=== PATIENT | male | born 1940 | race Caucasian/White ===

== ENCOUNTER → 2024-11-12 | Outpatient (CLI) | payer MEDICARE, BC, SELFPAY ==
[2024-11-12 09:22] LABS: Basophils # (Auto) 0.1 Thou/mm3 (0.0-0.2); Basophils % (Auto) 1 % (0-2.5); Eosinophils # (Auto) 0.2 Thou/mm3 (0.0-0.5); Eosinophils % (Auto) 3 % (0-10); Hematocrit 39.7 % (41.0-53.0); Hemoglobin 13.6 g/dL (13.5-16.0); Immature Granulocytes % (Auto) 1 % (0-0); Immature Granulocytes Auto 0.04 Thou/mm3 (0.00-0.00); Lymphocytes % (Auto) 14 % (10-50); Mean Corpuscular HGB Conc 34.3 g/dl (31.0-37.0); Mean Corpuscular Hemoglobin 33.9 pg (25.0-35.0); Mean Corpuscular Volume 99 fL (80-100); Monocytes # (Auto) 0.7 Thou/mm3 (0.0-0.8); Monocytes % (Auto) 10 % (0-12); Neutrophils # (Auto) 5.2 Thou/mm3 (1.8-7.7); Neutrophils % (Auto) 72 % (37-80); Nucleated Red Blood Cell % 0 /100 WBC (0); Platelet Count 211 Thou/mm3 (140-440); RDW Standard Deviation 48.1 fL (35.1-43.9); Red Blood Count 4.01 Miln/mm3 (4.50-5.90); White Blood Count 7.2 Thou/mm3 (3.8-10.6)
[2024-11-12 09:45] LABS: Alanine Aminotransferase 22 U/L (10-49); Albumin, Serum 4.2 gm/dL (3.4-4.8); Albumin/Globulin Ratio 1.8 (1.2-2.2); Alkaline Phosphatase 112 U/L (46-116); Anion Gap 8 (7-16); Aspartate Amino Transferase 18 U/L (0-34); BUN/Creatinine Ratio 18 Ratio (12-20); Bilirubin,Total 0.6 mg/dL (0.3-1.2); Blood Urea Nitrogen 42 mg/dL (9-23); Calcium 9.6 mg/dL (8.3-10.6); Calcium (Corrected) 9.6 mg/dL (8.5-10.1); Carbon Dioxide 26.7 mMol/L (20.0-31.0); Chloride 106 mMol/L (98-107); Cholesterol 137 mg/dL (132-200); Creatinine (Component) 2.3 mg/dL (0.6-1.3); Globulin 2.3 gm/dL (2.3-3.5); Glucose 111 mg/dL (74-106); HDL Cholesterol 67 mg/dL (40-60); LDL Cholesterol,Calculated 54 mg/dL (0-130); Osmolality,Calculated 292 (275-295); Sodium 141 mMol/L (136-145); Total Protein 6.5 gm/dL (5.7-8.2); Triglycerides 80 mg/dL (30-150); eGFR 27 See Note
== END | disposition home or self-care (01) ==
LOC: COPL 08:37
PROVIDERS: Referring Provider Internal Medicine Cardiovascular Disease; Visit Provider Internal Medicine Cardiovascular Disease
DX: E78.00 Pure hypercholesterolemia, unspecified (principal); N18.32 Chronic kidney disease, stage 3b; Z95.5 Presence of coronary angioplasty implant and graft
CPT/HCPCS: 36415; 80053; 80061; 85025

== ENCOUNTER → 2025-01-21 | Outpatient (CLI) | payer MEDICARE, BC, SELFPAY ==
[2025-01-21 16:39] LABS: Alanine Aminotransferase 16 U/L (10-49); Albumin, Serum 4.1 gm/dL (3.4-4.8); Albumin/Globulin Ratio 1.6 (1.2-2.2); Alkaline Phosphatase 113 U/L (46-116); Anion Gap 9 (7-16); Aspartate Amino Transferase 14 U/L (0-34); BUN/Creatinine Ratio 18 Ratio (12-20); Bilirubin,Total 0.5 mg/dL (0.3-1.2); Blood Urea Nitrogen 46 mg/dL (9-23); Calcium 9.2 mg/dL (8.3-10.6); Calcium (Corrected) 9.2 mg/dL (8.5-10.1); Carbon Dioxide 26.7 mMol/L (20.0-31.0); Chloride 103 mMol/L (98-107); Creatinine (Component) 2.5 mg/dL (0.6-1.3); Globulin 2.6 gm/dL (2.3-3.5); Glucose 89 mg/dL (74-106); Osmolality,Calculated 288 (275-295); Potassium 4.6 mMol/L (3.4-5.1); Sodium 139 mMol/L (136-145); Total Protein 6.7 gm/dL (5.7-8.2); eGFR 24 See Note
[2025-01-21 17:06] LABS: Collection Type, Urine Clean Catch
[2025-01-21 17:41] LABS: Bilirubin,Urine Negative (Negative); Blood,Urine 2+ (Negative); Clarity,Urine Clear (Clear/Hazy); Color,Urine Lt-Yellow (Lt Yel-Yel); Glucose, Urine Negative (Negative); Hyaline Casts,Urine < 1 /hpf (0-1); Ketones,Urine Negative (Negative); Leukocyte Esterase,Urine Negative (Negative); Nitrite,Urine Negative (Negative); Protein,Urine 2+ (Neg - Trace); RBC,Urine 34 /hpf (0-3); Specific Gravity,Urine 1.012 (1.001-1.035); Squamous Epithelial Cell,Urine < 1 /hpf (0-5); Urobilinogen,Urine Negative mg/dL (0.0-1.0); WBC,Urine 1 /hpf (0-5)
[2025-01-21 18:10] LABS: Basophils # (Auto) 0.1 Thou/mm3 (0.0-0.2); Basophils % (Auto) 1 % (0-2.5); Eosinophils # (Auto) 0.3 Thou/mm3 (0.0-0.5); Eosinophils % (Auto) 4 % (0-10); Hemoglobin 13.3 g/dL (13.5-16.0); Immature Granulocytes % (Auto) 0 % (0-0); Immature Granulocytes Auto 0.03 Thou/mm3 (0.00-0.00); Lymphocytes # (Auto) 1.4 Thou/mm3 (1.0-4.8); Lymphocytes % (Auto) 19 % (10-50); Mean Corpuscular HGB Conc 33.3 g/dl (31.0-37.0); Mean Corpuscular Hemoglobin 33.6 pg (25.0-35.0); Mean Corpuscular Volume 101 fL (80-100); Monocytes # (Auto) 0.8 Thou/mm3 (0.0-0.8); Monocytes % (Auto) 11 % (0-12); Neutrophils # (Auto) 4.8 Thou/mm3 (1.8-7.7); Neutrophils % (Auto) 66 % (37-80); Nucleated Red Blood Cell % 0 /100 WBC (0); Platelet Count 179 Thou/mm3 (140-440); RDW Standard Deviation 49.4 fL (35.1-43.9); Red Blood Count 3.96 Miln/mm3 (4.50-5.90); White Blood Count 7.3 Thou/mm3 (3.8-10.6)
== END | disposition home or self-care (01) ==
LOC: COPL 15:28
PROVIDERS: PCP Nurse Practitioner; Referring Provider Nurse Practitioner; Visit Provider Nurse Practitioner
DX: R31.9 Hematuria, unspecified (principal)
CPT/HCPCS: 36415; 80053; 81001; 85025; 87086

== ENCOUNTER → 2025-02-18 | Outpatient (CLI) | payer MEDICARE, BC, SELFPAY ==
--- NOTE | 2025-02-18 16:00 | XR_ITS ---
Examination: Retroperitoneal ultrasound, complete Technique: Multiple high resolution grayscale images of the retroperitoneum obtained, including kidneys and bladder. Exam date and time:February 18, 2025 1607 hrs. Indications: Abdominal distention beginning 5 years ago, flank pain Findings: Right kidney 11.4 cm cortex 1.5 cm 19 mm lower pole cyst Left kidney 10.9 cm cortex 1.0 cm 2 small lower pole cyst 22 mm, 15 mm Moderate renal parenchymal scar formation No hydronephrosis No bladder mass Bladder prevoid volume 150 cc Prostate is not enlarged and no prostate nodules Impression: Bilateral renal cortical thinning Moderate bilateral renal parenchymal scar formation No hydronephrosis
--- NOTE | 2025-02-18 16:30 | XR_ITS ---
Examination: Abdomen sonogram, complete Date and time of exam: February 18, 2025 1620 hrs. Indications: Abdominal distention beginning 2 years ago Technique: Grayscale transabdominal sonographic images of abdomen Findings: Negative for gallstones Gallbladder wall is thickened 0.5 cm Common bile duct 0.4 cm Pancreatic head 3.4 cm Aorta not enlarged Liver 15 cm no focal liver lesions Normal hepatopedal portal venous flow Patent IVC Right kidney 4.0 cm renal cortex 1.1 cm Left kidney 11.0 cm cortex 1.1 cm Small bilateral benign renal cyst Moderate renal parenchymal scar formation Spleen 9.5 cm . Impression: Gallbladder wall is thickened, clinical correlation advised, consider HIDA scan follow-up Bilateral renal cortical thinning Moderate bilateral renal parenchymal scar formation
== END | disposition home or self-care (01) ==
PROVIDERS: PCP Nurse Practitioner; Referring Provider Nurse Practitioner; Visit Provider Internal Medicine
DX: N28.89 Other specified disorders of kidney and ureter (principal)
CPT/HCPCS: 76700; 76770

== ENCOUNTER 2025-09-15 14:51 | Inpatient (IN) | payer MEDICARE, BC, SELFPAY ==
[2025-09-15] VITALS (7 sets, daily range): BP systolic 93–126; BP diastolic 63–68; PULSE 72–83; RESP 14–98; TEMP 36.4; O2SAT 96–100; BMI 26.6
--- NOTE | 2025-09-15 15:37 | XR_ITS ---
Examination: Retroperitoneal ultrasound, complete Technique: Multiple high resolution grayscale images of the retroperitoneum obtained, including kidneys and bladder. Exam date and time: September 15, 2025, 1653 hours INDICATIONS: Acute renal insufficiency on laboratory examination today. FINDINGS: Right kidney 10.2 cm renal cortex 1.4 cm Lower pole 19 mm cyst Left kidney 11.8 cm renal cortex 1.1 cm Mid kidney 26 mm cyst Moderate renal parenchymal scar formation No hydronephrosis Contracted urinary bladder Prostatomegaly volume 65.1 cc no prostate nodules IMPRESSION: Bilateral renal cortical thinning Moderate bilateral renal parenchymal scar formation No hydronephrosis
--- NOTE | 2025-09-15 15:37 | PD.EDADULT ---
ED General RME/HPI General Chief complaint: Abdominal Pain Stated complaint: REFERRED BY DR. GONZALES FOR KIDNEY INJURY Time Seen by Provider: 09/15/25 15:28 Arrival date/time: 09/15/25 14:51 85-year-old male patient was sent to us by Dr. Gonzales, administrative assistant office manager, for TARIQ. Apparently patient was brought in by family from [facility], due to not feeling well. Been having nausea, vomiting, for more than 3 weeks, was admitted in one of the hospital in [facility], stayed there overnight, 10 days ago for TARIQ. Kidney function improved according to the family. Since then the patient continues to have nausea, vomiting, not drinking and not eating. Patient has significant history of dementia. He had a history of prostate cancer but was released by urologist more than 3 years ago. Went to PCP today and was noted to have worsening kidney function. Currently patient is not having any symptoms. Patient is very diaphoretic. Patient told me that he is still making urine. Related Data Home Medications ?Medication ?Instructions ?Recorded ?Confirmed celecoxib 200 mg capsule (Celebrex) 200 mg PO QDAY 10/30/23 10/30/23 clopidogrel 75 mg tablet 75 mg PO QDAY 10/30/23 10/30/23 finasteride 5 mg tablet 5 mg PO QDAY 10/30/23 10/30/23 nifedipine 30 mg tablet,extended 30 mg PO QDAY 10/30/23 10/30/23 release 24 hr (Procardia XL) olmesartan 40 1 tab PO QDAY 10/30/23 10/30/23 mg-hydrochlorothiazide 25 mg tablet (Benicar HCT) rosuvastatin 10 mg tablet (Crestor) 10 mg PO QDAY 10/30/23 10/30/23 vitamin B complex (B 1 tab PO QDAY 10/30/23 10/30/23 Complex-Vitamin B12 tablet) Allergies Allergy/AdvReac Type Severity Reaction Status Date / Time No Known Allergies Allergy Verified 09/15/25 14:55 Review of Systems Review of Systems Narrative Review of Systems: Review of system reviewed and within normal limits except mentioned in HPI ED Exam Narrative Physical exam: VITAL SIGNS: Reviewed. GENERAL APPEARANCE: Alert and interactive, follows commands, no acute distress, HEAD AND FACE: Non-traumatic. ENT: PERRL, pink conjunctivitis, eyelid no trauma, Mucous membrane dry NECK: Supple, nontender, no nuchal rigidity. CHEST: No tenderness, no crepitus, no paradoxical movement, no retractions. LUNGS: Clear, well ventilated, symmetric, no rales, no wheezing, no ronchi, no stridor, good breath sounds bilaterally. HEART: Regular rate, regular rhythm, no murmur, no gallops. ABDOMEN: Soft, positive bowel sounds, nondistended, no guarding, nontender, no rebound, no masses, RECTAL: Deferred. GENITAL: Deferred. NEUROLOGICAL: Gross motor function intact sensory function intact, Appropriate for age. MUSCULOSKELETAL: low back nontender, full range of motion. EXTREMITIES: Nontender, full range of motion. SKIN: Color pink, dry, no rash, no lacerations, no abrasions, no contusions. LYMPHATICS: Deferred. Course Quality Measures none Orders Category Date Time Status COVID-19 Screening Questionnaire NOW Care 09/15/25 15:37 Active Decision to Admit X1 Care 09/15/25 15:37 Completed NPO after Midnight ONCE Care 09/15/25 17:28 Active Consult to Nephrology Stat Cons 09/15/25 16:03 Ordered Diet NPO after Midnight Diet 09/16/25 00:01 Active US renal BI Stat Exams 09/15/25 15:37 Completed ABG [Arterial Blood Gas] Stat Lab 09/15/25 17:26 Completed Citric Acid/Sodium Citr [Bicitra Soln] Med 09/15/25 21:00 Active 30 ml PO BID Ringers Lactated 1000 ml [Lactated Ringers] 1,000 ml Med 09/15/25 17:28 Active IV 100 mls/hr Ringers Lactated 1000 ml [Lactated Ringers] 1,000 ml Med 09/15/25 15:37 Discontinued IV 999 mls/hr Sodium Bicarb 8.4% 50ml Vial* Med 09/15/25 16:50 Discontinued 50 meq IV X1 ONE Sodium Bicarb 8.4% SYR Med 09/15/25 16:59 Discontinued 50 ml IV X1 ONE Vital Signs Vital signs: Vital Signs Temperature 97.5 F 09/15/25 15:14 Pulse Rate 83 09/15/25 15:14 Respiratory Rate 18 09/15/25 15:14 Blood Pressure 93/63 09/15/25 15:14 Pulse Oximetry (%) 99 09/15/25 15:14 Oxygen Delivery Method Room Air 09/15/25 15:14 Discharge Plan Plan Patient Disposition: Admit Acute Care w/in Hospital Problem List Clinical Impression: TARIQ (acute kidney injury), Acute dehydration, Chronic diarrhea MDM Narrative MDM hospital course (for use when minimal MDM required): 09/15/25 14:51 85-year-old male patient was sent to us by Dr. Gonzales, administrative assistant office manager, for TARIQ. Apparently patient was brought in by family from [facility], due to not feeling well. Been having nausea, vomiting, for more than 3 weeks, was admitted in one of the hospital in [facility], stayed there overnight, 10 days ago for TARIQ. Kidney function improved according to the family. Since then the patient continues to have nausea, vomiting, not drinking and not eating. Patient has significant history of dementia. He had a history of prostate cancer but was released by urologist more than 3 years ago. Went to PCP today and was noted to have worsening kidney function. Currently patient is not having any symptoms. Patient is very diaphoretic. Patient told me that he is still making urine. I reviewed the patient's laboratory workup was done outpatient today and showed creatinine of 9.4, BUN of 98, carbon dioxide less than 10, anion gap of 16, potassium 3.2 patient received IV fluids. Renal ultrasound done. And showedand Showed Bilateral renal cortical thinning Moderate bilateral renal parenchymal scar formation No hydronephrosis Patient was started on sodium bicarbonate IV also. Case discussed with administrative assistant office manager, who advised me to asked the hospitalist to admit Patient was admitted by hospitalist, Medication Administration(s) Medication Administration History Acetaminophen (Acetaminophen 325 Mg Tablet) 650 mg PO Q6H PRN PRN Reason: Fever >100.3 Stop: 10/15/25 17:52 Acetaminophen (Acetaminophen 325 Mg Tablet) 650 mg PO Q6H PRN PRN Reason: PAIN SCALE 1-3 (mild Stop: 10/15/25 17:52 Allopurinol (Allopurinol 100 Mg Tablet) 100 mg PO QDAY CASEY Stop: 10/16/25 08:59 Atorvastatin Calcium (Atorvastatin Calcium 10 Mg Tablet) 10 mg PO HS CASEY Stop: 10/15/25 20:59 Last Admin: 09/15/25 20:33 Dose: 10 mg Documented By: MLConcepción Calcitriol (Calcitriol 0.25 Mcg Capsule) 0.25 mcg PO QDAY CASEY Stop: 10/16/25 08:59 Citric Acid/Sodium Citrate (Citric Acid/Sodium Citr 15 Ml Udc (Bicitra)) 30 ml PO BID CASEY Stop: 10/15/25 20:59 Last Admin: 09/15/25 20:33 Dose: 30 ml Documented By: MLD Finasteride (Finasteride 5 Mg Tablet) 5 mg PO QDAY CASEY Stop: 10/16/25 08:59 Lactated Ringer's (Lactated Ringers) 1,000 mls @ 100 mls/hr IV .Q10H CASEY Stop: 10/15/25 17:27 Last Admin: 09/15/25 17:55 Dose: 100 mls/hr Documented By: BY Ceftriaxone Sodium/Dextrose (Rocephin/D5w 1gm Iv Premix) 1 gm in 50 mls @ 100 mls/hr IV QDAY CASEY Stop: 09/22/25 18:02 Last Admin: 09/15/25 20:33 Dose: 100 mls/hr Documented By: MLD Magnesium Sulfate (Magnesium Sulfate Ivpb) 4 gm in 50 mls @ 12.5 mls/hr IV X1 ONE Stop: 09/16/25 01:38 Nifedipine (Nifedipine Xl 30 Mg Tabcr) 30 mg PO QDAY [facility] Stop: 10/16/25 08:59 Ondansetron HCl (Ondansetron Inj 2 Mg/Ml Inj 2 Ml) 4 mg IVP Q6H PRN; Protocol PRN Reason: NAUSEA OR VOMITING Stop: 10/15/25 17:52 Pantoprazole Sodium (Pantoprazole Inj 40 Mg Vial) 40 mg IVP Q12HR CASEY Stop: 10/15/25 20:59 Last Admin: 09/15/25 20:33 Dose: 40 mg Documented By: MLD Sevelamer Carbonate (Sevelamer Carbonate 800 Mg Tablet) 800 mg PO TIDWM CASEY Stop: 10/16/25 07:59 Discontinued Medications Calcium Carbonate (Calcium Carbonate 600 Mg Tablet) 600 mg PO X1 ONE Stop: 09/15/25 20:52 Calcium Carbonate (Calcium Carbonate 600 Mg Tablet) 600 mg PO QDAY CASEY Stop: 10/16/25 08:59 Calcium Carbonate (Calcium Carbonate 600 Mg Tablet) 600 mg PO QDAY [facility] Stop: 10/16/25 08:59 Calcium Gluconate (Calcium Gluconate 10% Inj 1 Gm/10 Ml Vial) 1 gm IV X1 ONE Stop: 09/15/25 20:58 Last Admin: 09/15/25 21:42 Dose: 1 gm Documented By: MLD Calcium Gluconate (Calcium Gluconate 10% Inj 1 Gm/10 Ml Vial) 1 gm IV X1 ONE Stop: 09/15/25 20:58 Lactated Ringer's (Lactated Ringers) 1,000 mls @ 999 mls/hr IV .Q1H1M ONE Stop: 09/15/25 16:37 Last Infusion: 09/15/25 17:15 Dose: 0 mls/hr Documented By: Admin: 09/15/25 16:15 Dose: 999 mls/hr Documented By: BY Potassium Chloride (Potassium Chloride 10% 20 Meq/15 Ml Udc) 40 meq PO X1 ONE Stop: 09/15/25 20:52 Last Admin: 09/15/25 21:41 Dose: 40 meq Documented By: MLD Sevelamer Carbonate (Sevelamer Carbonate 800 Mg Tablet) 800 mg PO X1 ONE Stop: 09/15/25 20:56 Last Admin: 09/15/25 21:41 Dose: 800 mg Documented By: MLConcepción Sodium Bicarbonate (Sodium Bicarb Inj 8.4% 1 Meq/Ml 50 Ml Vial) 50 meq IV X1 ONE Stop: 09/15/25 16:51 Last Admin: 09/15/25 17:00 Dose: Not Given Documented By: SIENNA Non-Admin Reason: Cancelled by Provider Sodium Bicarbonate (Sodium Bicarb Inj 8.4% Syr 50 Ml Syringe) 50 ml IV X1 ONE Stop: 09/15/25 17:00 Last Admin: 09/15/25 17:27 Dose: 50 ml Documented By: BY Sodium Bicarbonate (Sodium Bicarb Inj 8.4% 1 Meq/Ml 50 Ml Vial) 50 meq IV X1 ONE Stop: 09/15/25 19:29 Sodium Bicarbonate (Sodium Bicarb Inj 8.4% 1 Meq/Ml 50 Ml Vial) 50 meq IV X1 ONE Stop: 09/15/25 20:49 Sodium Bicarbonate (Sodium Bicarb Inj 8.4% 1 Meq/Ml 50 Ml Vial) 50 meq IV X1 ONE Stop: 09/15/25 20:52 Sodium Bicarbonate (Sodium Bicarb Inj 8.4% Syr 50 Ml Syringe) 50 ml IV X1 ONE Stop: 09/15/25 21:31 Last Admin: 09/15/25 21:31 Dose: 50 ml Documented By: MLD Sodium Bicarbonate (Sodium Bicarb Inj 8.4% Syr 50 Ml Syringe) 50 ml IV X1 ONE Stop: 09/15/25 21:33 Sodium Bicarbonate (Sodium Bicarb Inj 8.4% Syr 50 Ml Syringe) 50 ml IV X1 ONE Stop: 09/15/25 21:33 Diagnosis Differential Diagnosis ED Complaint MDM: Dehydration, chronic nausea vomiting diarrhea, TARIQ on CKD Diagnoses ruled out and/or further discussions: Dehydration, TARIQ
[2025-09-15] MEDS: RINGERS LACTATED 1000 ML 1,000 ML 999 ML IV (16:15)
--- NOTE | 2025-09-15 17:19 | PD.ADDHP ---
Addendum History & Physical Addendum Date of report being addended: 09/15/25 Narrative: Attending attestation: I reviewed labs, imaging, EKG, home medications and prior available records. Face to face evaluation was performed by me. I have personally examined the patient and discussed assessment and plan with the IM team. I reviewed the resident note and agree with the plan with exceptions as below. Nausea and vomiting Diarrhea TARIQ on CKD Hypokalemia Hyponatremia TARIQ is likely prerenal in setting of poor oral intake and vomiting/diarrhea Start IV fluids Monitor kidney function. Avoid nephrotoxins. Renally dosed medications Consulted nephrology Hold HCTZ and Bumex Ordered stool studies
[2025-09-15] MEDS: Sodium Bicarb Inj 8.4% SYR 50 ML SYRINGE IV ×4 (17:27→21:50)
[2025-09-15 17:30] LABS: Base Excess -17 (-3-3); HCO3 8 mEq/L (20-26); Inspired Oxygen, FIO2 21 %; O2 Saturation 98 % (91-98); PCO2 20 mmHg (32.0-48.0); PO2 108 mmHg (83-108); pH, Arterial 7.23 (7.35-7.45)
[2025-09-15 17:31] LABS: Allen Test Performed/OK; Puncture Site Right Radial
--- NOTE | 2025-09-15 17:41 | PD.RESCONSUL ---
HPI Data of Consult Consult date: 09/15/25 Consult Narrative Reason for consult: TARIQ on CKDIV History of present illness: Jair Elizabeth 85M pmhx significant for dementia, CAD, HTN, HLD and hx of prostate adenocarcinoma presents to [facility] ED on 09/15 sent from ceramics instructor Dr. Gonzales's office for TARIQ on CKDIV. Son at bedside reports that patient was admitted to hospital in [facility] 10 days ago for similar presentation with TARIQ and was aggressively hydrated with IVF, discharged next day with improvement in renal function. For the past few days patient has significantly decreased p.o. intake drinking minimal water and minimal urine output. Son states that patient does forget to drink water due to dementia and has been having nausea and vomiting with diarrhea. Patient denies any flank pain, hematuria or suprapubic pain. Denies recent illness, recent travel or fever/chills. On admission, sodium 134, potassium 3.2, bicarb less than 10, anion gap 18, BUN 98, creatinine 9.4, GFR 5 osmolarity 298. Nephrology consulted for TARIQ on CKD stage IV. cc:: cc: Review of Systems Review of Systems Systems Reviewed: All systems reviewed, normal except as documented Exam Vital Signs Temp Pulse Resp BP Pulse Ox O2 Del Method 97.6 F 72 18 118/68 99 Room Air 09/15/25 16:15 09/15/25 16:15 09/15/25 16:15 09/15/25 16:15 09/15/25 16:15 09/15/25 15:14 Narrative Exam GENERAL: Alert, no acute distress, dementia HEENT: mucous membranes dry, bilateral sclera anicteric CARDIOVASCULAR: regular rate and rhythm, S1/S2 present, no murmurs appreciated PULMONARY: clear to auscultation bilaterally, no rales/rhonchi/wheezes ABDOMINAL: soft, non-distended, no rebound/guarding, bowel sounds present, mild epigastric tenderness EXTREMITIES: no peripheral edema SKIN: warm and dry, intact, no rashes NEURO: CN II-XII grossly intact, no focal deficits, alert, following commands Results Labs 09/16/25 05:20 09/16/25 05:20 ABG Interpretation ABG results: 09/15/25 17:26 ABG pH 7.23 L ABG pCO2 20 L ABG pO2 108 ABG HCO3 8 L* ABG O2 Saturation 98 ABG Base Excess -17 L Quality Measures Quality Measures VTE prophylaxis Advance care planning discussed with:: patient and child Medications Home Medications and Allergies Home Medications ?Medication ?Instructions ?Recorded ?Confirmed ?Type celecoxib 200 mg capsule (Celebrex) 200 mg PO QDAY 10/30/23 09/16/25 History finasteride 5 mg tablet 5 mg PO QDAY 10/30/23 09/16/25 History nifedipine 30 mg tablet,extended 30 mg PO QDAY 10/30/23 09/16/25 History release 24 hr (Procardia XL) olmesartan 40 1 tab PO QDAY 10/30/23 09/16/25 History mg-hydrochlorothiazide 25 mg tablet (Benicar HCT) rosuvastatin 10 mg tablet (Crestor) 10 mg PO QDAY 10/30/23 09/16/25 History vitamin B complex (B 1 tab PO QDAY 10/30/23 09/16/25 History Complex-Vitamin B12 tablet) allopurinol 100 mg tablet 100 mg PO .Q PM 09/16/25 09/16/25 History bumetanide 1 mg tablet 1 mg PO .QOTHERDAY 09/16/25 09/16/25 History ergocalciferol (vitamin D2) 1,250 1,250 mcg PO QWEEK 09/16/25 09/16/25 History mcg (50,000 unit) capsule potassium chloride 20 mEq 20 meq PO .QOTHER DAY 09/16/25 09/16/25 History tablet,extended release sertraline 50 mg tablet 50 mg PO QDAY 09/16/25 09/16/25 History sevelamer carbonate 800 mg tablet 800 mg PO BID 09/16/25 09/16/25 History vitamin B complex-vitamin C-folic 1 tab PO QDAY 09/16/25 09/16/25 History acid 0.8 mg tablet Allergies Allergy/AdvReac Type Severity Reaction Status Date / Time No Known Allergies Allergy Verified 09/15/25 14:55 Visit Medications Citric Acid/Sodium Citrate (Citric Acid/Sodium Citr 15 Ml Udc (Bicitra)) 30 ml PO BID CASEY Stop: 10/15/25 20:59 Lactated Ringer's (Lactated Ringers) 1,000 mls @ 100 mls/hr IV .Q10H CASEY Stop: 10/15/25 17:27 Discontinued Medications Lactated Ringer's (Lactated Ringers) 1,000 mls @ 999 mls/hr IV .Q1H1M ONE Stop: 09/15/25 16:37 Last Admin: 09/15/25 16:15 Dose: 999 mls/hr Sodium Bicarbonate (Sodium Bicarb Inj 8.4% 1 Meq/Ml 50 Ml Vial) 50 meq IV X1 ONE Stop: 09/15/25 16:51 Last Admin: 09/15/25 17:00 Dose: Not Given Sodium Bicarbonate (Sodium Bicarb Inj 8.4% Syr 50 Ml Syringe) 50 ml IV X1 ONE Stop: 09/15/25 17:00 Last Admin: 09/15/25 17:27 Dose: 50 ml Assessment & Plan Plan Jair Elizabeth 85M pmhx significant for dementia, CAD, HTN, HLD and hx of prostate adenocarcinoma presents to [facility] ED on 09/15 sent from ceramics instructor Dr. Gonzales's office for TARIQ on CKDIV likely 2/2 dehydration #TARIQ on CKDIV likely prerenal #Metabolic acidosis 2/2 TARIQ #Hypokalemia #Hyponatremia Patient sent from ceramics instructor Dr. Gonzales's office. Endorses N/V with diarrhea and poor PO intake for the past few days. Recently admitted 10 days ago for similar presentation, and was treated with IVF with improvement. On admission, sodium 134, potassium 3.2, bicarb less than 10, anion gap 18, BUN 98, creatinine 9.4, GFR 5 osmolarity 298. ABG 7.23/20/108/8. UA cloudy, 2+ protein, 3+ blood, 1+ bilirubin, +LE, 45 RBC 207 WBC rare bacteria. s/p 1 amp bicarb in ED Renal US: Bilateral renal cortical thinning, moderate bilateral renal parenchymal scar formation, no hydronephrosis, right kidney lower pole 1.9 cm cyst, left kidney mid kidney 2.6 cm cyst, prostatomegaly 65cc no nodules Ddx: Likely prerenal 2/2 poor p.o. intake vs UTI vs ATN vs GI losses 2/2 diarrhea Plan: - LR 100 cc/hr and bicitra 30 mL BID - NPO after midnight for possible dialysis catheter if labs do not improve by tomorrow morning - Avoid anticoagulation for DVT prophylaxis iso possible procedure tomorrow - Avoid renally toxic and renally dose medication #Dementia #CAD #HTN #HLD #Hx of prostate carcinoma #Hx of superficial bladder cancer - Above managed per primary team Thank you for the consultation and allowing participation in patient's care. Plan of care discussed with attending Dr. Gonzales. Linda Iqbal, PGY-1 Internal Medicine Attending Provider Attestation/Addendum patient seen and examined with resident physician Dr. Iqbal. Note reviewed, agree with findings and recommendations. Patient currently seen in emergency department. son Daniel at bedside. PCP [facility] Patient noted to have worsening renal function in the setting of decreased p.o. intake and decreased urinary output per son for the last few days. I saw him in the office today and stat labs showed TARIQ and was sent to the emergency department for IV fluids. Strict I&O's ordered. Noted to have severe metabolic acidosis-bicarbonate was given. No improvement in renal function will plan for dialysis tomorrow. Son in agreement. Patient has some memory problems. Thank you Miles for allowing me to participate in the care of Mr. Anand
[2025-09-15] MEDS: RINGERS LACTATED 1000 ML 1,000 ML 100 ML IV (17:55)
--- NOTE | 2025-09-15 17:58 | PD.RESHP ---
Documentation for date of: 09/15/25 [facility] History of Present Illness History of present illness: Mr. Elizabeth is an 85 y/o male with PMH CKD stage IV, CAD s/p stents (with Dr. Rivera), HTN, HLD, dementia, prostate cancer s/p radiation in remission who presented to the ED on 09/15 sent from plating equipment tender Dr. Gonzales's office for TARIQ on CKD. Patient's son, Daniel, at bedside reports that patient was admitted to hospital in [facility] 10 days ago for similar presentation with TARIQ (Cr ~3) and was aggressively hydrated with IVF, discharged next day with improvement in renal function. Patient still makes urine. For the past few days patient has significantly decreased p.o. intake drinking minimal water and minimal urine output. Son states that patient does forget to drink water due to dementia and has been having non-bloody nonbilious nausea and vomiting with nonbloody diarrhea x 3 weeks. Patient denies any flank pain, hematuria or suprapubic pain. Denies recent illness, recent travel or fever/chills. Also spoke with patient's , Pattie, on the phone. She notes that patient was recently seen outpatient for diarrhea, negative for Cdiff at end of August 2025. No contacts have similar symptoms. Patient evaluated at bedside, reports nausea, epigastric pain, epigastric and chest burning sensation. Denies dysuria, urinary frequency or urgency. ED course: Afebrile, VSS> Labs significant for hgb 12.1, HCT 34.2, Na 134, K 3.2, Bicarb <10, BUN 98, Cr 9.4, eGFR 5. Anion gap 18. UA 2+ protein, 3+ blood, 1+ bili, +LE, 45 RBC, 207 WBC, rare bacteria. Ucx pending. Given 1L LR in ED. PMHx: CKD stage IV, CAD, HTN, HLD, dementia, prostate cancer s/p radiation in remission, gout Allergies: Beta blockers - swelling Home meds: Vitamin D2 1250 mcg (58998 U) 1 capsule weekly Emi-Ana Maria 0.8 mg PO daily Potassium Chloride 20 mEq oral packed every other day Rosuvastatin 10 mg QHS Sevelamer carbonate 800 mg BID Finasteride 5 mg daily Benicar HCT 40mg-25mg daily Bumex 1 mg every other day Nifedipine ER 30 mg daily Allopurinol 100 mg daily SgHx: Knee and shoulder repair, coronary artery stents SHx: Denies smoking, recreational drug use. 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 FHx: Father - CHANDRAKANT Kuo, patient's daughter, MPOA: [phone] Pattie, patient's : [phone] Daniel, patient's son: [phone] Review of Systems Review of Systems Narrative Review of Systems: 14 point ROS negative other than HPI Exam Vital Signs Temp Pulse Resp BP Pulse Ox O2 Del Method 97.6 F 72 18 118/68 99 Room Air 09/15/25 16:15 09/15/25 16:15 09/15/25 16:15 09/15/25 16:15 09/15/25 16:15 09/15/25 15:14 Narrative Exam General: No acute distress, well nourished Eye: PERRL, EOMI, normal conjunctiva, no scleral icterus HENT: Normocephalic, atraumatic, difficulty hearing, dry mucous membranes Neck: Supple, non-tender, no JVD, no lymphadenopathy Lungs: Clear to auscultation bilaterally, non-labored respirations, symmetric chest rise, no use of accessory muscles Heart: Normal S1 and S2, no S3 or S4 appreciated. Normal rate and regular rhythm, no murmurs, rubs gallops. No LE edema Abdomen: Soft, epigastric TTP, non-distended, normal bowel sounds. No guarding or rebound tenderness. Musculoskeletal: Normal range of motion and strength, no tenderness or swelling Skin: Skin is warm, dry, no rashes or lesions. Neurologic: Alert, awake and oriented x2, asking the same questions repeatedly. CN II-XII grossly intact. No focal neuro deficits. No signs of meningeal irritation noted. Psychiatric: Cooperative, appropriate mood and affect Results: Labs 09/16/25 05:20 09/16/25 05:20 ABG Interpretation ABG results: 09/15/25 17:26 ABG pH 7.23 L ABG pCO2 20 L ABG pO2 108 ABG HCO3 8 L* ABG O2 Saturation 98 ABG Base Excess -17 L Quality Measures Quality Measures VTE prophylaxis Advance care planning discussed with:: patient, spouse and child Medications Home Medications and Allergies Home Medications ?Medication ?Instructions ?Recorded ?Confirmed ?Type celecoxib 200 mg capsule (Celebrex) 200 mg PO QDAY 10/30/23 09/16/25 History finasteride 5 mg tablet 5 mg PO QDAY 10/30/23 09/16/25 History nifedipine 30 mg tablet,extended 30 mg PO QDAY 10/30/23 09/16/25 History release 24 hr (Procardia XL) olmesartan 40 1 tab PO QDAY 10/30/23 09/16/25 History mg-hydrochlorothiazide 25 mg tablet (Benicar HCT) rosuvastatin 10 mg tablet (Crestor) 10 mg PO QDAY 10/30/23 09/16/25 History vitamin B complex (B 1 tab PO QDAY 10/30/23 09/16/25 History Complex-Vitamin B12 tablet) allopurinol 100 mg tablet 100 mg PO .Q PM 09/16/25 09/16/25 History bumetanide 1 mg tablet 1 mg PO .QOTHERDAY 09/16/25 09/16/25 History ergocalciferol (vitamin D2) 1,250 1,250 mcg PO QWEEK 09/16/25 09/16/25 History mcg (50,000 unit) capsule potassium chloride 20 mEq 20 meq PO .QOTHER DAY 09/16/25 09/16/25 History tablet,extended release sertraline 50 mg tablet 50 mg PO QDAY 09/16/25 09/16/25 History sevelamer carbonate 800 mg tablet 800 mg PO BID 09/16/25 09/16/25 History vitamin B complex-vitamin C-folic 1 tab PO QDAY 09/16/25 09/16/25 History acid 0.8 mg tablet Allergies Allergy/AdvReac Type Severity Reaction Status Date / Time No Known Allergies Allergy Verified 09/15/25 14:55 Visit Medications Citric Acid/Sodium Citrate (Citric Acid/Sodium Citr 15 Ml Udc (Bicitra)) 30 ml PO BID CASEY Stop: 10/15/25 20:59 Lactated Ringer's (Lactated Ringers) 1,000 mls @ 100 mls/hr IV .Q10H CASEY Stop: 10/15/25 17:27 Last Admin: 09/15/25 17:55 Dose: 100 mls/hr Discontinued Medications Lactated Ringer's (Lactated Ringers) 1,000 mls @ 999 mls/hr IV .Q1H1M ONE Stop: 09/15/25 16:37 Last Infusion: 09/15/25 17:15 Dose: 0 mls/hr Sodium Bicarbonate (Sodium Bicarb Inj 8.4% 1 Meq/Ml 50 Ml Vial) 50 meq IV X1 ONE Stop: 09/15/25 16:51 Last Admin: 09/15/25 17:00 Dose: Not Given Sodium Bicarbonate (Sodium Bicarb Inj 8.4% Syr 50 Ml Syringe) 50 ml IV X1 ONE Stop: 09/15/25 17:00 Last Admin: 09/15/25 17:27 Dose: 50 ml Assessment & Plan Plan Mr. Elizabeth is an 85 y/o male with PMH CKD stage IV, CAD s/p stents (with Dr. Rivera), HTN, HLD, dementia, prostate cancer s/p radiation in remission who presented to the ED on 09/15 sent from plating equipment tender Dr. Gonzales's office for TARIQ on CKD. Admitted for TARIQ on CKDIV, Cr 9.4. #TARIQ on CKDIV likely prerenal #Metabolic acidosis 2/2 TARIQ #Hypokalemia #Hyponatremia 2/2 dehydration i/s/o N/V/D, poor PO intake follows with Dr. Gonzales, recently seen inpatient in [facility] for for mild TARIQ (Cr ~3), managed with IVF sodium 134, potassium 3.2, bicarb less than 10, anion gap 18, BUN 98, creatinine 9.4, GFR 5 osmolarity 298. ABG 7.23/20/108 Renal US: Bilateral renal cortical thinning, moderate bilateral renal parenchymal scar formation, no hydronephrosis, right kidney lower pole 1.9 cm cyst, left kidney mid kidney 2.6 cm cyst, prostatomegaly 65cc no nodules s/p 1 amp bicarb, 1L LR in ED On admit: - Consulted Dr. Gonzales, appreciate recs - LR 100 mL/hr - Bicitra 30 mL BID - Strict I&Os, daily weight, galindo catheter - NPO after midnight in case pt requires dialysis catheter placement if labs do not improve - Pending repeat renal panel - Avoid anticoagulation for DVT prophylaxis iso possible procedure tomorrow - Avoid renally toxic and renally dose medication #Diarrhea #Vomiting #Epigastric pain 3 weeks of nonbloody nonbilious vomiting, nonbloody diarrhea. Poor PO intake. No sick contacts w/ similar presentation Recent Cdiff testing negative Plan: - Pending stool WBC, calprotectin, Cdiff Ag, Giardia, Norovirus, Hpylori - Pantoprazole 40 mg IV BID #UTI Denies urinary sx UA cloudy, 2+ protein, 3+ blood, 1+ bilirubin, +LE, 45 RBC, 207 WBC, rare bacteria. Plan: - Ceftriaxone 1 g IV daily - Pending urine cx #CAD s/p stenting #HLD Stents placed by Dr. Rivera 2020 Denies typical chest pain Plan: - Atorvastatin 10 mg QHS (home med rosuvastatin 10 mg QHS) - Hold anticoag i/s/o possible procedure tomorrow #HTN VSS Plan: - Nifedipine XL 30 mg PO daily (home med) #Dementia Plan: - CTM sx #Hx of prostate carcinoma s/p radiation #Hx of superficial bladder cancer #BPH Plan: - Finasteride 5 mg PO daily (home med) #Gout Plan: - Allopurinol 100 mg PO daily (home med) Checklist Dispo: Admit for TARIQ on CKD, possible dialysis needed Lines: PIV Diet: NPO after midnight Bowel Reg: n/a VTE ppx: SCDs in prep for possible procedure GI ppx: pantoprazole 40 mg IV BID Pain mgmt: Tylenol PRN Code status: full Plan discussed with Dr. Dora Flores and Dr. Kit Marte MD PGY1 Attending Provider Attestation/Addendum I reviewed labs, imaging, EKG, home medications and prior available records. Face to face evaluation was performed by me. I have personally examined the patient and discussed assessment and plan with the IM team. I reviewed the resident note and agree with the plan with exceptions as below. Nausea and vomiting Diarrhea TARIQ on CKD Hypokalemia Hyponatremia TARIQ is likely prerenal in setting of poor oral intake and vomiting/diarrhea Start IV fluids Monitor kidney function. Avoid nephrotoxins. Renally dosed medications Consulted nephrology Hold HCTZ and Bumex Ordered stool studies
--- NOTE | 2025-09-15 19:39 | PC.NURSE ---
report called to Ashli TINOCO. pt stable vs WNL
[2025-09-15 20:16] LABS: Albumin, Serum 4.2 gm/dL (3.4-4.8); Anion Gap 17 (7-16); BUN/Creatinine Ratio 11 Ratio (12-20); Blood Urea Nitrogen 105 mg/dL (9-23); Calcium 7.6 mg/dL (8.3-10.6); Calcium (Corrected) 7.6 mg/dL (8.5-10.1); Chloride 107 mMol/L (98-107); Creatinine (Component) 9.2 mg/dL (0.6-1.3); Estimated Creatinine Clearance 5.7 mL/min (>60); Glucose 104 mg/dL (74-106); Osmolality,Calculated 303 (275-295); Potassium 3.2 mMol/L (3.4-5.1); Sodium 135 mMol/L (136-145); eGFR 5 See Note
[2025-09-15 20:23] LABS: Carbon Dioxide 11.2 mMol/L (20.0-31.0)
[2025-09-15 20:24] LABS: Phosphorous 9.3 mg/dL (2.4-5.1)
[2025-09-15] MEDS: ATORVASTATIN CALCIUM 10 MG TABLET PO (20:33)
[2025-09-15] MEDS: cefTRIAXone/D5w 1gm IV premix 1 GM/50 ML BAG IV (20:33)
[2025-09-15] MEDS: CITRIC ACID/SODIUM CITR 15 ML UDC (BICITRA) 30 ML PO (20:33)
[2025-09-15 21:33] LABS: Magnesium 1.3 mg/dL (1.6-2.6)
[2025-09-15] MEDS: POTASSIUM CHLORIDE 10% 20 MEQ/15 ML UDC 40 MEQ PO (21:41)
[2025-09-15] MEDS: SEVELAMER CARBONATE 800 MG TABLET PO (21:41)
[2025-09-15] MEDS: CALCIUM GLUCONATE 10% INJ 1 GM/10 ML VIAL IV (21:42)
[2025-09-15] MEDS: Magnesium Sulfate 4 GM Ivpb 4 GM/50 ML BAG IV (21:50)
[2025-09-15] MEDS: CALCIUM GLUC/NS 1000MG IVPB 1,000 MG/50 ML BAG 50 MG IV (22:30)
[2025-09-15 23:02] LABS: Stool for WBCs Negative (Negative)
[2025-09-16] VITALS (28 sets, daily range): BP systolic 112–148; BP diastolic 49–83; PULSE 62–83; RESP 11–99; TEMP 36.1–36.9; O2SAT 97–99; BMI 26.6
[2025-09-16 01:10] LABS: Albumin, Serum 3.8 gm/dL (3.4-4.8); Anion Gap 16 (7-16); BUN/Creatinine Ratio 11 Ratio (12-20); Blood Urea Nitrogen 94 mg/dL (9-23); Calcium 8.0 mg/dL (8.3-10.6); Calcium (Corrected) 8.2 mg/dL (8.5-10.1); Carbon Dioxide 16.1 mMol/L (20.0-31.0); Chloride 107 mMol/L (98-107); Creatinine (Component) 8.5 mg/dL (0.6-1.3); Estimated Creatinine Clearance 6.1 mL/min (>60); Glucose 125 mg/dL (74-106); Osmolality,Calculated 307 (275-295); Phosphorous 7.6 mg/dL (2.4-5.1); Potassium 3.2 mMol/L (3.4-5.1); Sodium 139 mMol/L (136-145); eGFR 6 See Note
[2025-09-16 01:31] LABS: Base Excess -8 (-3-3); HCO3 15 mEq/L (20-26); Inspired Oxygen, FIO2 21 %; O2 Saturation 98 % (91-98); PCO2 25 mmHg (32.0-48.0); PO2 96 mmHg (83-108); pH, Arterial 7.39 (7.35-7.45)
[2025-09-16] MEDS: CALCIUM CARBONATE 600 MG TABLET PO (01:31)
[2025-09-16] MEDS: POTASSIUM CHLORIDE 10% 20 MEQ/15 ML UDC 40 MEQ PO (01:31)
[2025-09-16 01:45] LABS: Allen Test Performed/OK; Puncture Site Right Radial
[2025-09-16] MEDS: SERTRALINE HCL 25 MG TABLET 50 MG PO ×2 (01:58→20:27)
[2025-09-16] MEDS: RINGERS LACTATED 1000 ML 1,000 ML 100 ML IV ×2 (03:40→16:27)
[2025-09-16 05:36] LABS: Lactate (Lactic Acid) 1.1 mMol/L (0.4-2.0)
[2025-09-16 05:43] LABS: Basophils # (Auto) 0.0 Thou/mm3 (0.0-0.2); Basophils % (Auto) 0 % (0-2.5); Eosinophils # (Auto) 0.1 Thou/mm3 (0.0-0.5); Eosinophils % (Auto) 1 % (0-10); Hematocrit 27.4 % (41.0-53.0); Hemoglobin 10.1 g/dL (13.5-16.0); Immature Granulocytes Auto 0.02 Thou/mm3 (0.00-0.00); Lymphocytes # (Auto) 0.7 Thou/mm3 (1.0-4.8); Lymphocytes % (Auto) 9 % (10-50); Mean Corpuscular HGB Conc 36.9 g/dl (31.0-37.0); Mean Corpuscular Hemoglobin 35.4 pg (25.0-35.0); Mean Corpuscular Volume 96 fL (80-100); Monocytes # (Auto) 0.7 Thou/mm3 (0.0-0.8); Monocytes % (Auto) 9 % (0-12); Neutrophils # (Auto) 6.2 Thou/mm3 (1.8-7.7); Neutrophils % (Auto) 81 % (37-80); Nucleated Red Blood Cell # 0.00 Thou/mm3 (0.00-0.00); Nucleated Red Blood Cell % 0 /100 WBC (0); Platelet Count 263 Thou/mm3 (140-440); RDW Standard Deviation 44.6 fL (35.1-43.9); Red Blood Count 2.85 Miln/mm3 (4.50-5.90); White Blood Count 7.7 Thou/mm3 (3.8-10.6)
[2025-09-16 05:54] LABS: INR 1.1 (0.9-1.3); Partial Thromboplastin Time 27.7 Seconds (22.0-36.0); Prothrombin Time 11.9 Seconds (9.0-12.2)
[2025-09-16 06:00] LABS: Vitamin D 25 Hydroxy Total 37.1 ng/mL (7.3-40.2)
--- NOTE | 2025-09-16 06:02 | PC.NURSE ---
DR. CAMEJO NOTIFIED OF PT'S URINE OUTPUT APPEARS BRIGHT RED. PT DENIES PAIN ON URETHRA. 500 ML URINE OUTPUT. NO NEW ORDER.
[2025-09-16 06:06] LABS: Alanine Aminotransferase 16 U/L (10-49); Albumin, Serum 3.5 gm/dL (3.4-4.8); Albumin/Globulin Ratio 2.1 (1.2-2.2); Alkaline Phosphatase 82 U/L (46-116); Anion Gap 16 (7-16); Aspartate Amino Transferase 34 U/L (0-34); BUN/Creatinine Ratio 13 Ratio (12-20); Bilirubin,Total < 0.2 mg/dL (0.3-1.2); Blood Urea Nitrogen 105 mg/dL (9-23); Calcium 7.8 mg/dL (8.3-10.6); Calcium (Corrected) 8.2 mg/dL (8.5-10.1); Carbon Dioxide 15.9 mMol/L (20.0-31.0); Chloride 109 mMol/L (98-107); Creatinine (Component) 8.2 mg/dL (0.6-1.3); Estimated Creatinine Clearance 6.3 mL/min (>60); Globulin 1.7 gm/dL (2.3-3.5); Glucose 107 mg/dL (74-106); Magnesium 1.9 mg/dL (1.6-2.6); Osmolality,Calculated 314 (275-295); Phosphorous 6.8 mg/dL (2.4-5.1); Potassium 3.3 mMol/L (3.4-5.1); Sodium 141 mMol/L (136-145); Total Protein 5.2 gm/dL (5.7-8.2); eGFR 6 See Note
--- NOTE | 2025-09-16 07:00 | XR_ITS ---
Ultrasound-guided needle placement right internal jugular vein Permanent tunneled dialysis catheter insertion, percutaneous Fluoroscopy AP chest, portable, single view. Date and time of procedure: October 03, 2025, 0910 hours INDICATIONS: Renal failure, need for stat on long-term dialysis with a permanent tunneled dialysis catheter Informed consent provided Technique: A timeout was completed verifying correct patient, procedure, site, positioning, and special equipment if applicable. The patient was placed in a dependent position appropriate for dialysis catheter placement based on the vein to be cannulated. The patient's right neck was prepped and draped in sterile fashion. Maximum Sterile Barrier Technique used including cap, mask, sterile gown, sterile gloves, and sterile full body drape. If ultrasound technique used: sterile gel and sterile probe covers. Hand Hygiene performed using proper scrub, soap and water, or alcohol-based hand rub. 1% lidocaine was used to anesthetize the surrounding skin area [employer] portable ultrasound apparatus utilized to confirm patency of the right internal jugular vein Utilizing ultrasonographic guidance successful 20-gauge needle puncture into the right internal jugular vein Ultrasound images were recorded and stored. Vessel micropuncture was performed with 21-gauge needle. 0.18 wire guide is introduced into the vein. 0.18 wire is introduced into the vena cava under fluoroscopy. Subcutaneous tunnel formed in the upper chest. Permanent tunneled dialysis catheter placed in the subcutaneous tunnel. Dilators were introduced over the J-wire guide. Tunneled dialysis catheter is introduced through a dilator with venous sheath into the superior vena cava under fluoroscopic guidance. The catheter is sutured in place to the skin and a sterile dressing applied. Perfusion to the extremity distal to the point of catheter insertion is checked and found to be adequate Attending radiologist was present for the entire procedure Estimated blood loss 2 cc. The patient tolerated the procedure well and there were no complications Impression: Successful ultrasound-guided needle placement right internal jugular vein Successful permanent tunneled dialysis catheter insertion, percutaneous Fluoroscopy 0.6-minute radiation dose 5.93 mGy 1 spot fluoroscopic chest. AP chest performed at completion procedure demonstrates satisfactory position dialysis catheter. May use dialysis catheter.
--- NOTE | 2025-09-16 07:51 | PD.RESPRO ---
Documentation for date of: 09/16/25 Subjective Subjective Interval history: Received Seroquel 12.5 mg PO x1 overnight for agitation most likely 2/2 dementia vs delirium. Patient evaluated with son, Daniel, at bedside. Patient denied pain or shortness of breath. Reports continued abdominal pain and diarrhea. No blood in stool per nurse. Exam Vital Signs Temp Pulse Resp BP Pulse Ox O2 Del Method 98.0 F 81 11 L 112/51 L 97 Room Air 09/16/25 04:00 09/16/25 04:00 09/16/25 04:00 09/16/25 04:00 09/16/25 04:00 09/16/25 04:00 Narrative Exam General: No acute distress, well nourished Eye: PERRL, EOMI, normal conjunctiva, no scleral icterus HENT: Normocephalic, atraumatic, difficulty hearing Neck: Supple, non-tender, no JVD, no lymphadenopathy Lungs: Clear to auscultation bilaterally, non-labored respirations, symmetric chest rise, no use of accessory muscles Heart: Normal S1 and S2, no S3 or S4 appreciated. Normal rate and regular rhythm, no murmurs, rubs gallops. No LE edema Abdomen: Soft, epigastric TTP, non-distended, normal bowel sounds. No guarding or rebound tenderness. Musculoskeletal: Normal range of motion and strength, no tenderness or swelling Skin: Skin is warm, dry, no rashes or lesions. Neurologic: Alert, awake and oriented x2, asking the same questions repeatedly. CN II-XII grossly intact. No focal neuro deficits. No signs of meningeal irritation noted. Psychiatric: Cooperative, appropriate mood and affect Objective Labs 09/16/25 05:20 09/16/25 05:20 Labs: Laboratory Results - last 24 hr 09/15/25 09/15/25 09/15/25 17:26 19:45 21:50 WBC RBC Hgb Hct MCV MCH MCHC RDW Std Deviation Plt Count Neut % (Auto) Lymph % (Auto) Travis % (Auto) Eos % (Auto) Baso % (Auto) Neut # (Auto) Lymph # (Auto) Travis # (Auto) Eos # (Auto) Baso # (Auto) Immature Gran # (Auto) Absolute Nucleated RBC Immature Gran % Nucleated RBC % PT INR APTT Puncture Site Right Radial ABG pH 7.23 L ABG pCO2 20 L ABG pO2 108 ABG HCO3 8 L* ABG O2 Saturation 98 ABG Base Excess -17 L FiO2 21 Sodium 135 L Potassium 3.2 L Chloride 107 Carbon Dioxide 11.2 L* Anion Gap 17 H BUN 105 H* Creatinine 9.2 H* Estim Creat Clear Calc 5.7 L eGFR 5 L* BUN/Creatinine Ratio 11 L Glucose 104 Calculated Osmolality 303 H Lactic Acid Calcium 7.6 L Corrected Calcium 7.6 L Phosphorus 9.3 H Magnesium 1.3 L Total Bilirubin AST ALT Alkaline Phosphatase Total Protein Albumin 4.2 Globulin Albumin/Globulin Ratio 25-OH Vitamin D Total Stool for White Cells Negative 09/16/25 09/16/25 09/16/25 00:23 01:26 05:20 WBC 7.7 RBC 2.85 L Hgb 10.1 L D Hct 27.4 L MCV 96 MCH 35.4 H MCHC 36.9 RDW Std Deviation 44.6 H Plt Count 263 D Neut % (Auto) 81 H Lymph % (Auto) 9 L Travis % (Auto) 9 Eos % (Auto) 1 Baso % (Auto) 0 Neut # (Auto) 6.2 Lymph # (Auto) 0.7 L Travis # (Auto) 0.7 Eos # (Auto) 0.1 Baso # (Auto) 0.0 Immature Gran # (Auto) 0.02 H Absolute Nucleated RBC 0.00 Immature Gran % 0 Nucleated RBC % 0 PT 11.9 INR 1.1 APTT 27.7 Puncture Site Right Radial ABG pH 7.39 D ABG pCO2 25 L ABG pO2 96 ABG HCO3 15 L ABG O2 Saturation 98 ABG Base Excess -8 L FiO2 21 Sodium 139 141 Potassium 3.2 L 3.3 L Chloride 107 109 H Carbon Dioxide 16.1 L 15.9 L Anion Gap 16 16 BUN 94 H 105 H* Creatinine 8.5 H* D 8.2 H* Estim Creat Clear Calc 6.1 L 6.3 L eGFR 6 L* 6 L* BUN/Creatinine Ratio 11 L 13 Glucose 125 H 107 H Calculated Osmolality 307 H 314 H Lactic Acid 1.1 Calcium 8.0 L 7.8 L Corrected Calcium 8.2 L 8.2 L Phosphorus 7.6 H 6.8 H Magnesium 1.9 Total Bilirubin < 0.2 L AST 34 ALT 16 Alkaline Phosphatase 82 D Total Protein 5.2 L Albumin 3.8 3.5 Globulin 1.7 L Albumin/Globulin Ratio 2.1 25-OH Vitamin D Total 37.1 Stool for White Cells ABG Interpretation ABG results: 09/15/25 09/16/25 17:26 01:26 ABG pH 7.23 L 7.39 D ABG pCO2 20 L 25 L ABG pO2 108 96 ABG HCO3 8 L* 15 L ABG O2 Saturation 98 98 ABG Base Excess -17 L -8 L Quality Measures Quality Measures none Advance care planning discussed with:: patient and child Assessment & Plan Assessment Current Active Medications: Generic Name Dose Route Start Last Admin Trade Name Freq PRN Reason Stop Dose Admin Acetaminophen 650 mg 09/15/25 17:53 Acetaminophen 325 Mg Tablet PO 10/15/25 17:52 Q6H PRN Fever >100.3 Acetaminophen 650 mg 09/15/25 17:53 Acetaminophen 325 Mg Tablet PO 10/15/25 17:52 Q6H PRN PAIN SCALE 1-3 (mild Allopurinol 100 mg 09/16/25 09:00 Allopurinol 100 Mg Tablet PO 10/16/25 08:59 QDAY CASEY Atorvastatin Calcium 10 mg 09/15/25 21:00 09/15/25 20:33 Atorvastatin Calcium 10 Mg Tablet PO 10/15/25 20:59 10 mg HS CASEY Administration Calcitriol 0.25 mcg 09/16/25 09:00 Calcitriol 0.25 Mcg Capsule PO 10/16/25 08:59 QDAY CASEY Citric Acid/Sodium Citrate 30 ml 09/15/25 21:00 09/15/25 20:33 Citric Acid/Sodium Citr 15 Ml Udc (Bicitra) PO 10/15/25 20:59 30 ml BID CASEY Administration Finasteride 5 mg 09/16/25 09:00 Finasteride 5 Mg Tablet PO 10/16/25 08:59 QDAY CASEY Lactated Ringer's 1,000 mls @ 100 mls/hr 09/15/25 17:28 09/16/25 03:40 Lactated Ringers IV 10/15/25 17:27 100 mls/hr .Q10H CASEY Administration Ceftriaxone Sodium/Dextrose 1 gm in 50 mls @ 100 mls/hr 09/15/25 18:03 09/15/25 21:05 Rocephin/D5w 1gm Iv Premix IV 09/22/25 18:02 Infused QDAY CASEY Infusion Nifedipine 30 mg 09/16/25 09:00 Nifedipine Xl 30 Mg Tabcr PO 10/16/25 08:59 QDAY CASEY Ondansetron HCl 4 mg 09/15/25 17:53 Ondansetron Inj 2 Mg/Ml Inj 2 Ml IVP 10/15/25 17:52 Q6H PRN NAUSEA OR VOMITING Protocol Pantoprazole Sodium 40 mg 09/15/25 21:00 09/15/25 20:33 Pantoprazole Inj 40 Mg Vial IVP 10/15/25 20:59 40 mg Q12HR CASEY Administration Sertraline HCl 50 mg 09/16/25 01:45 09/16/25 01:58 Sertraline Hcl 25 Mg Tablet PO 10/16/25 01:44 50 mg HS CASEY Administration Sevelamer Carbonate 800 mg 09/16/25 08:00 Sevelamer Carbonate 800 Mg Tablet PO 10/16/25 07:59 TIDWM CASEY Plan Mr. Elizabeth is an 85 y/o male with PMH CKD stage IV, CAD s/p stents (with Dr. Rivera), HTN, HLD, dementia, prostate cancer s/p radiation in remission who presented to the ED on 09/15 sent from assembly detailer Dr. Gonzales's office for TARIQ on CKD. Admitted for TARIQ on CKDIV, Cr 9.4. #TARIQ on CKDIV likely prerenal #Metabolic acidosis 2/2 TARIQ #Hypokalemia #Hyponatremia 2/2 dehydration i/s/o N/V/D, poor PO intake follows with Dr. Gonzales, recently seen inpatient in [facility] for for mild TARIQ (Cr ~3), managed with IVF On admit: sodium 134, potassium 3.2, bicarb less than 10, anion gap 18, BUN 98, creatinine 9.4, GFR 5 osmolarity 298. ABG 7.23/20/108 Renal US: Bilateral renal cortical thinning, moderate bilateral renal parenchymal scar formation, no hydronephrosis, right kidney lower pole 1.9 cm cyst, left kidney mid kidney 2.6 cm cyst, prostatomegaly 65cc no nodules s/p 1 amp bicarb, 1L LR in ED Little to no improvement in kidney fn s/p IVF Dialysis catheter placed 09/16 On admit: - Consulted Dr. Gonzales, appreciate recs - Plan 3 consecutive days of HD starting 09/16 - LR 100 mL/hr - Bicitra 30 mL BID - Strict I&Os, daily weight, galindo catheter - CTM daily renal panel - Avoid renally toxic and renally dose medication - Hold olmesartan-HCTZ 40-10 mg PO daily i/s/o TARIQ - Pending TB ppd for outpatient dialysis #Hypocalcemia #Hyperphosphatemia #Elevated PTH i/s/o TARIQ on CKD Plan: - Calcitriol 0.25 mcg PO daily - Sevelamer 800 mg PO TID (home med) #Diarrhea #Vomiting #Epigastric pain 3 weeks of nonbloody nonbilious vomiting, nonbloody diarrhea. Poor PO intake. No sick contacts w/ similar presentation Recent Cdiff testing negative Stool WBC negative Plan: - Pending calprotectin, Cdiff Ag, Giardia, Norovirus, Hpylori - Pantoprazole 40 mg IV BID #UTI Denies urinary sx UA cloudy, 2+ protein, 3+ blood, 1+ bilirubin, +LE, 45 RBC, 207 WBC, rare bacteria. Plan: - Ceftriaxone 1 g IV daily - Pending urine cx #CAD s/p stenting #HLD Stents placed by Dr. Rivera 2020 Denies typical chest pain Plan: - Atorvastatin 10 mg QHS (home med rosuvastatin 10 mg QHS) #HTN VSS Plan: - Nifedipine XL 30 mg PO daily (home med) #Dementia #Delirium Received seroquel 12.5 mg PO x1 overnight 09/15 Plan: - CTM sx - Melatonin 3 mg PO QHS #Hx of prostate carcinoma s/p radiation #Hx of superficial bladder cancer #BPH Plan: - Finasteride 5 mg PO daily (home med) #Gout Plan: - Allopurinol 100 mg PO daily (home med) #Depression Plan: - Sertraline 50 mg PO daily (home med) Checklist Dispo: Admit for TARIQ on CKD, dialysis Lines: PIV, Tunneled dialysis catheter (placed 09/16) Diet: Renal diet Bowel Reg: n/a VTE ppx: heparin subQ GI ppx: pantoprazole 40 mg IV BID Pain mgmt: Tylenol PRN Code status: full Plan discussed with Dr. Dora Flores and Dr. Kit Marte MD PGY1 Attending Provider Attestation/Addendum I reviewed labs, imaging, EKG, home medications and prior available records. Face to face evaluation was performed by me. I have personally examined the patient and discussed assessment and plan with the IM team. I reviewed the resident note and agree with the plan with exceptions as below. Nausea and vomiting Diarrhea TARIQ on CKD Hypokalemia Hyponatremia TARIQ is likely prerenal in setting of poor oral intake and vomiting/diarrhea Status post IV fluids Monitor kidney function: No significant improvement Consulted nephrology: Status post IR inserted dialysis catheter. Plan to start hemodialysis Discussed with rehabilitation case coordinator to start looking for dialysis centers as outpatient Hold HCTZ and Bumex Ordered stool studies: C. difficile is pending. No stool WBC
[2025-09-16 08:50] LABS: Hepatitis A Antibody IgM Non Reactive (Non React); Hepatitis B Core Antibody IgM Non Reactive (Non React); Hepatitis B Surface Antigen Non Reactive (Non React); Hepatitis C Antibody Non Reactive (Non React)
[2025-09-16] MEDS: fentaNYL CIT INJ 50 mCg/ML AMP 2ML 25 MCG IVP (09:52)
[2025-09-16] MEDS: LIDOCAINE INJ PF 1% 30 ML VIAL 12 ML INFL (09:54)
[2025-09-16] MEDS: HEPARIN SOD LOCK SYR 100 UNIT/ML 500 UNIT STFIELD (09:55)
[2025-09-16] MEDS: HEPARIN SOD INJ 1000 UNIT/ML VIAL 3500 UNIT INDWELLCAT (10:15)
[2025-09-16] MEDS: FINASTERIDE 5 MG TABLET PO (10:56)
[2025-09-16] MEDS: SEVELAMER CARBONATE 800 MG TABLET PO ×2 (10:56→20:27)
[2025-09-16] MEDS: NIFEdipine XL 30 MG TABCR PO (10:56)
[2025-09-16] MEDS: CITRIC ACID/SODIUM CITR 15 ML UDC (BICITRA) 30 ML PO ×2 (10:57→21:06)
[2025-09-16] MEDS: cefTRIAXone/D5w 1gm IV premix 1 GM/50 ML BAG IV (10:58)
--- NOTE | 2025-09-16 13:25 | PD.RESPRO ---
Documentation for date of: 09/16/25 Subjective Subjective Interval history: Jair Elizabeth 85M pmhx significant for dementia, CAD, HTN, HLD and hx of prostate adenocarcinoma presents to [facility] ED on 09/15 sent from a r collections rep Dr. Gonzales's office for TARIQ on CKDIV. Son at bedside reports that patient was admitted to hospital in [facility] 10 days ago for similar presentation with TARIQ and was aggressively hydrated with IVF, discharged next day with improvement in renal function. For the past few days patient has significantly decreased p.o. intake drinking minimal water and minimal urine output. Son states that patient does forget to drink water due to dementia and has been having nausea and vomiting with diarrhea. Patient denies any flank pain, hematuria or suprapubic pain. Denies recent illness, recent travel or fever/chills. On admission, sodium 134, potassium 3.2, bicarb less than 10, anion gap 18, BUN 98, creatinine 9.4, GFR 5 osmolarity 298. Nephrology consulted for TARIQ on CKD stage IV. 09/16/25: Patient seen and examined at bedside with daughter Ang. Overnight patient was agitated trying to get up and walk around requiring quetiapine. Per daughter, patient has been more confused lately. Decision made to initiate dialysis with anticipation of renal recovery as BUN continues to be elevated at 105 with GFR 6. Exam Vital Signs Temp Pulse Resp BP Pulse Ox O2 Del Method O2 Flow Rate 97.3 F 68 18 147/80 H 99 Room Air 3 09/16/25 11:56 09/16/25 11:56 09/16/25 11:56 09/16/25 11:56 09/16/25 11:56 09/16/25 11:56 09/16/25 10:15 Narrative Exam GENERAL: Alert, no acute distress, dementia HEENT: mucous membranes dry, bilateral sclera anicteric CARDIOVASCULAR: regular rate and rhythm, S1/S2 present, no murmurs appreciated PULMONARY: clear to auscultation bilaterally, no rales/rhonchi/wheezes ABDOMINAL: soft, non-distended, no rebound/guarding, bowel sounds present EXTREMITIES: no peripheral edema SKIN: warm and dry, intact, no rashes NEURO: CN II-XII grossly intact, no focal deficits, alert, following commands Objective Labs 09/17/25 04:44 09/17/25 04:44 Labs: Laboratory Results - last 24 hr 09/15/25 09/15/25 09/15/25 17:26 19:45 21:50 WBC RBC Hgb Hct MCV MCH MCHC RDW Std Deviation Plt Count Neut % (Auto) Lymph % (Auto) Douglas % (Auto) Eos % (Auto) Baso % (Auto) Neut # (Auto) Lymph # (Auto) Douglas # (Auto) Eos # (Auto) Baso # (Auto) Immature Gran # (Auto) Absolute Nucleated RBC Immature Gran % Nucleated RBC % PT INR APTT Puncture Site Right Radial ABG pH 7.23 L ABG pCO2 20 L ABG pO2 108 ABG HCO3 8 L* ABG O2 Saturation 98 ABG Base Excess -17 L FiO2 21 Sodium 135 L Potassium 3.2 L Chloride 107 Carbon Dioxide 11.2 L* Anion Gap 17 H BUN 105 H* Creatinine 9.2 H* Estim Creat Clear Calc 5.7 L eGFR 5 L* BUN/Creatinine Ratio 11 L Glucose 104 Calculated Osmolality 303 H Lactic Acid Calcium 7.6 L Corrected Calcium 7.6 L Phosphorus 9.3 H Magnesium 1.3 L Total Bilirubin AST ALT Alkaline Phosphatase Total Protein Albumin 4.2 Globulin Albumin/Globulin Ratio 25-OH Vitamin D Total Stool for White Cells Negative Hepatitis A IgM Ab Hep Bs Antigen Hep B Core IgM Ab Hepatitis C Antibody 09/16/25 09/16/25 09/16/25 00:23 01:26 05:20 WBC 7.7 RBC 2.85 L Hgb 10.1 L D Hct 27.4 L MCV 96 MCH 35.4 H MCHC 36.9 RDW Std Deviation 44.6 H Plt Count 263 D Neut % (Auto) 81 H Lymph % (Auto) 9 L Douglas % (Auto) 9 Eos % (Auto) 1 Baso % (Auto) 0 Neut # (Auto) 6.2 Lymph # (Auto) 0.7 L Douglas # (Auto) 0.7 Eos # (Auto) 0.1 Baso # (Auto) 0.0 Immature Gran # (Auto) 0.02 H Absolute Nucleated RBC 0.00 Immature Gran % 0 Nucleated RBC % 0 PT 11.9 INR 1.1 APTT 27.7 Puncture Site Right Radial ABG pH 7.39 D ABG pCO2 25 L ABG pO2 96 ABG HCO3 15 L ABG O2 Saturation 98 ABG Base Excess -8 L FiO2 21 Sodium 139 141 Potassium 3.2 L 3.3 L Chloride 107 109 H Carbon Dioxide 16.1 L 15.9 L Anion Gap 16 16 BUN 94 H 105 H* Creatinine 8.5 H* D 8.2 H* Estim Creat Clear Calc 6.1 L 6.3 L eGFR 6 L* 6 L* BUN/Creatinine Ratio 11 L 13 Glucose 125 H 107 H Calculated Osmolality 307 H 314 H Lactic Acid 1.1 Calcium 8.0 L 7.8 L Corrected Calcium 8.2 L 8.2 L Phosphorus 7.6 H 6.8 H Magnesium 1.9 Total Bilirubin < 0.2 L AST 34 ALT 16 Alkaline Phosphatase 82 D Total Protein 5.2 L Albumin 3.8 3.5 Globulin 1.7 L Albumin/Globulin Ratio 2.1 25-OH Vitamin D Total 37.1 Stool for White Cells Hepatitis A IgM Ab Non Reactive Hep Bs Antigen Non Reactive Hep B Core IgM Ab Non Reactive Hepatitis C Antibody Non Reactive ABG Interpretation ABG results: 09/15/25 09/16/25 17:26 01:26 ABG pH 7.23 L 7.39 D ABG pCO2 20 L 25 L ABG pO2 108 96 ABG HCO3 8 L* 15 L ABG O2 Saturation 98 98 ABG Base Excess -17 L -8 L Quality Measures Quality Measures none Advance care planning discussed with:: patient Assessment & Plan Assessment Current Active Medications: Generic Name Dose Route Start Last Admin Trade Name Freq PRN Reason Stop Dose Admin Acetaminophen 650 mg 09/15/25 17:53 Acetaminophen 325 Mg Tablet PO 10/15/25 17:52 Q6H PRN Fever >100.3 Acetaminophen 650 mg 09/15/25 17:53 Acetaminophen 325 Mg Tablet PO 10/15/25 17:52 Q6H PRN PAIN SCALE 1-3 (mild Allopurinol 100 mg 09/16/25 09:00 09/16/25 10:57 Allopurinol 100 Mg Tablet PO 10/16/25 08:59 100 mg QDAY CASEY Administration Atorvastatin Calcium 10 mg 09/15/25 21:00 09/15/25 20:33 Atorvastatin Calcium 10 Mg Tablet PO 10/15/25 20:59 10 mg HS CASEY Administration Calcitriol 0.25 mcg 09/16/25 09:00 09/16/25 10:55 Calcitriol 0.25 Mcg Capsule PO 10/16/25 08:59 0.25 mcg QDAY CASEY Administration Citric Acid/Sodium Citrate 30 ml 09/15/25 21:00 09/16/25 10:57 Citric Acid/Sodium Citr 15 Ml Udc (Bicitra) PO 10/15/25 20:59 30 ml BID CASEY Administration Finasteride 5 mg 09/16/25 09:00 09/16/25 10:56 Finasteride 5 Mg Tablet PO 10/16/25 08:59 5 mg QDAY CASEY Administration Lactated Ringer's 1,000 mls @ 100 mls/hr 09/15/25 17:28 09/16/25 03:40 Lactated Ringers IV 10/15/25 17:27 100 mls/hr .Q10H CASEY Administration Ceftriaxone Sodium/Dextrose 1 gm in 50 mls @ 100 mls/hr 09/15/25 18:03 09/16/25 10:58 Rocephin/D5w 1gm Iv Premix IV 09/22/25 18:02 100 mls/hr QDAY CASEY Administration Nifedipine 30 mg 09/16/25 09:00 09/16/25 10:56 Nifedipine Xl 30 Mg Tabcr PO 10/16/25 08:59 30 mg QDAY CASEY Administration Ondansetron HCl 4 mg 09/15/25 17:53 Ondansetron Inj 2 Mg/Ml Inj 2 Ml IVP 10/15/25 17:52 Q6H PRN NAUSEA OR VOMITING Protocol Pantoprazole Sodium 40 mg 09/15/25 21:00 09/16/25 10:57 Pantoprazole Inj 40 Mg Vial IVP 10/15/25 20:59 40 mg Q12HR CASEY Administration Sertraline HCl 50 mg 09/16/25 01:45 09/16/25 01:58 Sertraline Hcl 25 Mg Tablet PO 10/16/25 01:44 50 mg HS CASEY Administration Sevelamer Carbonate 800 mg 09/16/25 08:00 09/16/25 11:15 Sevelamer Carbonate 800 Mg Tablet PO 10/16/25 07:59 Not Given TIDWM CASEY Plan Jair Elizabeth 85M pmhx significant for dementia, CAD, HTN, HLD and hx of prostate adenocarcinoma presents to [facility] ED on 09/15 sent from a r collections rep Dr. Gonzales's office for TARIQ on CKDIV likely 2/2 dehydration #TARIQ on CKDIV likely prerenal #Metabolic acidosis 2/2 TARIQ #Hypokalemia #Hyponatremia Patient sent from a r collections rep Dr. Gonzlaes's office. Endorses N/V with diarrhea and poor PO intake for the past few days. Recently admitted 10 days ago for similar presentation, and was treated with IVF with improvement. On admission, sodium 134, potassium 3.2, bicarb less than 10, anion gap 18, BUN 98, creatinine 9.4, GFR 5 osmolarity 298. ABG 7.23/20/108/8. UA cloudy, 2+ protein, 3+ blood, 1+ bilirubin, +LE, 45 RBC 207 WBC rare bacteria. s/p 1 amp bicarb in ED Renal US: Bilateral renal cortical thinning, moderate bilateral renal parenchymal scar formation, no hydronephrosis, right kidney lower pole 1.9 cm cyst, left kidney mid kidney 2.6 cm cyst, prostatomegaly 65cc no nodules Ddx: Likely prerenal 2/2 poor p.o. intake vs UTI vs ATN vs GI losses 2/2 diarrhea Plan: - LR 100 cc/hr and bicitra 30 mL BID - TDC to be placed today and plan 3 consecutive days of HD starting today - Avoid renally toxic meds and renally dose #Dementia #CAD #HTN #HLD #Hx of prostate carcinoma #Hx of superficial bladder cancer - Above managed per primary team Thank you for the consultation and allowing participation in patient's care. Plan of care discussed with attending Dr. Gonzales. Linda Iqbal, PGY-1 Internal Medicine Attending Provider Attestation/Addendum patient seen and examined with resident physician Dr. Iqbal. Note reviewed, agree with findings and recommendations. Patient currently seen in telemetry. Daughter Ayaan at bedside. PCP [facility] Patient noted to have worsening renal function in the setting of decreased p.o. intake and decreased urinary output per son for the last few days. I saw him in the office today and stat labs showed TARIQ and was sent to the emergency department for IV fluids. Strict I&O's ordered. 09/16/2025 despite IV fluids his albumin still remains at 105 with confusion and altered level of consciousness. Decided to proceed with dialysis. Noted to have severe metabolic acidosis-bicarbonate was given. Patient has some memory problems. IJ dialysis catheter placed by Dr. Can. Patient currently seen on dialysis. Tolerating dialysis without any problems. Hemodialysis for 2 hours, 4K, ultrafiltration 0 L, Epogen 6000, no heparin ordered. Plan of care discussed with the dialysis nurse. Please see dialysis flowsheet for further details. Next dialysis scheduled for tomorrow. Hep panel negative. PPD placed. Outpatient dialysis will be arranged.
[2025-09-16] MEDS: TUBERCULIN PPD INJ 5 UNIT/0.1 ML DOSE ID (14:20)
--- NOTE | 2025-09-16 15:55 | PC.SS ---
Rounding Note: Patient obtained dialysis catheter today. Dr. Gonzales consulting.
--- NOTE | 2025-09-16 16:43 | PC.NURSE ---
Lab was unable to process C diff sample so order was cancelled, will send down new sample with new order once pt has another BM
[2025-09-16] MEDS: HEPARIN SOD INJ 1000 UNIT/ML VIAL 10 ML 3500 UNIT INDWELLCAT (19:24)
[2025-09-16] MEDS: ATORVASTATIN CALCIUM 10 MG TABLET PO (20:27)
[2025-09-16] MEDS: MELATONIN 3 MG TABLET PO (20:27)
[2025-09-16] MEDS: HEPARIN SOD INJ 5000 UNIT/ML VIAL SC (21:07)
[2025-09-17] VITALS (22 sets, daily range): BP systolic 106–149; BP diastolic 55–82; PULSE 62–84; RESP 15–996; TEMP 36.1–37.3; O2SAT 95–98; BMI 26.5; BMI 26.6
[2025-09-17] MEDS: RINGERS LACTATED 1000 ML 1,000 ML 100 ML IV (03:12)
[2025-09-17] MEDS: HEPARIN SOD INJ 5000 UNIT/ML VIAL SC (05:20)
[2025-09-17 06:39] LABS: Basophils # (Auto) 0.0 Thou/mm3 (0.0-0.2); Basophils % (Auto) 0 % (0-2.5); Eosinophils # (Auto) 0.0 Thou/mm3 (0.0-0.5); Eosinophils % (Auto) 0 % (0-10); Hematocrit 28.9 % (41.0-53.0); Hemoglobin 10.4 g/dL (13.5-16.0); Immature Granulocytes Auto 0.03 Thou/mm3 (0.00-0.00); Lymphocytes # (Auto) 0.8 Thou/mm3 (1.0-4.8); Lymphocytes % (Auto) 9 % (10-50); Mean Corpuscular HGB Conc 36.0 g/dl (31.0-37.0); Mean Corpuscular Hemoglobin 34.8 pg (25.0-35.0); Mean Corpuscular Volume 97 fL (80-100); Monocytes # (Auto) 0.9 Thou/mm3 (0.0-0.8); Monocytes % (Auto) 10 % (0-12); Neutrophils # (Auto) 7.2 Thou/mm3 (1.8-7.7); Neutrophils % (Auto) 80 % (37-80); Nucleated Red Blood Cell # 0.00 Thou/mm3 (0.00-0.00); Nucleated Red Blood Cell % 0 /100 WBC (0); Platelet Count 258 Thou/mm3 (140-440); RDW Standard Deviation 43.6 fL (35.1-43.9); Red Blood Count 2.99 Miln/mm3 (4.50-5.90); White Blood Count 9.0 Thou/mm3 (3.8-10.6)
--- NOTE | 2025-09-17 06:49 | PD.RESPRO ---
Documentation for date of: 09/17/25 Subjective Subjective Interval history: Patient had an episode of monica hematuria overnight, no clots. No more diarrhea, had one solid formed stool this AM. Patient evaluated at bedside, getting dialysis. Patient's daughter, Ayaan, at bedside. Patient denies diffuse or abdominal pain, chest pain, shortness of breath, or paresthesias Exam Vital Signs Temp Pulse Resp BP Pulse Ox O2 Del Method O2 Flow Rate 98.7 F 77 23 H 109/57 L 98 Room Air 3 09/17/25 04:00 09/17/25 04:00 09/17/25 04:00 09/17/25 04:00 09/17/25 04:00 09/17/25 04:00 09/16/25 10:15 Narrative Exam General: No acute distress, well nourished Eye: PERRL, EOMI, normal conjunctiva, no scleral icterus HENT: Normocephalic, atraumatic, difficulty hearing Neck: Supple, non-tender, no JVD, no lymphadenopathy Lungs: Clear to auscultation bilaterally, non-labored respirations, symmetric chest rise, no use of accessory muscles Heart: Normal S1 and S2, no S3 or S4 appreciated. Normal rate and regular rhythm, no murmurs, rubs gallops. No LE edema Abdomen: Soft, no TTP, non-distended, normal bowel sounds. No guarding or rebound tenderness. Musculoskeletal: Normal range of motion and strength, no tenderness or swelling Skin: Skin is warm, dry, no rashes or lesions.Tunneled dialysis catheter in placed right upper chest, clean Neurologic: Alert, awake and oriented x2. CN II-XII grossly intact. No focal neuro deficits. No signs of meningeal irritation noted. Psychiatric: Cooperative, appropriate mood and affect Objective Labs 09/17/25 04:44 09/17/25 04:44 Labs: Laboratory Results - last 24 hr 09/15/25 09/16/25 09/17/25 21:50 05:20 04:44 WBC 9.0 RBC 2.99 L Hgb 10.4 L Hct 28.9 L MCV 97 MCH 34.8 MCHC 36.0 RDW Std Deviation 43.6 Plt Count 258 Neut % (Auto) 80 Lymph % (Auto) 9 L Evangeline % (Auto) 10 Eos % (Auto) 0 Baso % (Auto) 0 Neut # (Auto) 7.2 Lymph # (Auto) 0.8 L Evangeline # (Auto) 0.9 H Eos # (Auto) 0.0 Baso # (Auto) 0.0 Immature Gran # (Auto) 0.03 H Absolute Nucleated RBC 0.00 Immature Gran % 0 Nucleated RBC % 0 Stl C. diff Tox B Gene Cancelled Hepatitis A IgM Ab Non Reactive Hep Bs Antigen Non Reactive Hep B Core IgM Ab Non Reactive Hepatitis C Antibody Non Reactive ABG Interpretation ABG results: 09/15/25 09/16/25 17:26 01:26 ABG pH 7.23 L 7.39 D ABG pCO2 20 L 25 L ABG pO2 108 96 ABG HCO3 8 L* 15 L ABG O2 Saturation 98 98 ABG Base Excess -17 L -8 L Quality Measures Quality Measures none Advance care planning discussed with:: patient Assessment & Plan Assessment Current Active Medications: Generic Name Dose Route Start Last Admin Trade Name Freq PRN Reason Stop Dose Admin Acetaminophen 650 mg 09/15/25 17:53 Acetaminophen 325 Mg Tablet PO 10/15/25 17:52 Q6H PRN Fever >100.3 Acetaminophen 650 mg 09/15/25 17:53 Acetaminophen 325 Mg Tablet PO 10/15/25 17:52 Q6H PRN PAIN SCALE 1-3 (mild Allopurinol 100 mg 09/16/25 09:00 09/16/25 10:57 Allopurinol 100 Mg Tablet PO 10/16/25 08:59 100 mg QDAY CASEY Administration Atorvastatin Calcium 10 mg 09/15/25 21:00 09/16/25 20:27 Atorvastatin Calcium 10 Mg Tablet PO 10/15/25 20:59 10 mg HS CASEY Administration Calcitriol 0.25 mcg 09/16/25 09:00 09/16/25 10:55 Calcitriol 0.25 Mcg Capsule PO 10/16/25 08:59 0.25 mcg QDAY CASEY Administration Citric Acid/Sodium Citrate 30 ml 09/15/25 21:00 09/16/25 21:06 Citric Acid/Sodium Citr 15 Ml Udc (Bicitra) PO 10/15/25 20:59 30 ml BID CASEY Administration Finasteride 5 mg 09/16/25 09:00 09/16/25 10:56 Finasteride 5 Mg Tablet PO 10/16/25 08:59 5 mg QDAY CASEY Administration Heparin Sodium (Porcine) 5,000 unit 09/16/25 22:00 09/17/25 05:20 Heparin Sod Inj 5000 Unit/Ml Vial SC 09/30/25 21:59 5,000 unit Q8HR CASEY Administration Heparin Sodium (Porcine) 3,500 unit 09/16/25 17:51 09/16/25 19:24 Heparin Sod Inj 1000 Unit/Ml Vial 10 Ml INDWELLCAT 09/30/25 17:50 3,500 unit PRN PRN Administration DIALYSIS Lactated Ringer's 1,000 mls @ 100 mls/hr 09/15/25 17:28 09/17/25 03:12 Lactated Ringers IV 10/15/25 17:27 100 mls/hr .Q10H CASEY Administration Ceftriaxone Sodium/Dextrose 1 gm in 50 mls @ 100 mls/hr 09/15/25 18:03 09/16/25 10:58 Rocephin/D5w 1gm Iv Premix IV 09/22/25 18:02 100 mls/hr QDAY CASEY Administration Melatonin 3 mg 09/16/25 21:00 09/16/25 20:27 Melatonin 3 Mg Tablet PO 10/16/25 20:59 3 mg HS CASEY Administration Nifedipine 30 mg 09/16/25 09:00 09/16/25 10:56 Nifedipine Xl 30 Mg Tabcr PO 10/16/25 08:59 30 mg QDAY CASEY Administration Ondansetron HCl 4 mg 09/15/25 17:53 Ondansetron Inj 2 Mg/Ml Inj 2 Ml IVP 10/15/25 17:52 Q6H PRN NAUSEA OR VOMITING Protocol Pantoprazole Sodium 40 mg 09/15/25 21:00 09/16/25 21:06 Pantoprazole Inj 40 Mg Vial IVP 10/15/25 20:59 40 mg Q12HR CASEY Administration Sertraline HCl 50 mg 09/16/25 01:45 09/16/25 20:27 Sertraline Hcl 25 Mg Tablet PO 10/16/25 01:44 50 mg HS CASEY Administration Sevelamer Carbonate 800 mg 09/16/25 08:00 09/16/25 20:27 Sevelamer Carbonate 800 Mg Tablet PO 10/16/25 07:59 800 mg TIDWM CASEY Administration Plan Mr. Elizabeth is an 85 y/o male with PMH CKD stage IV, CAD s/p stents (with Dr. Rivera), HTN, HLD, dementia, prostate cancer s/p radiation in remission who presented to the ED on 09/15 sent from technical publications writer Dr. Gonzales's office for TARIQ on CKD. Admitted for TARIQ on CKDIV, Cr 9.4. #TARIQ on CKDIV likely prerenal #Metabolic acidosis 2/2 TARIQ #Hypokalemia #Hyponatremia 2/2 dehydration i/s/o N/V/D, poor PO intake follows with Dr. Gonzales, recently seen inpatient in [facility] for for mild TARIQ (Cr ~3), managed with IVF On admit: sodium 134, potassium 3.2, bicarb less than 10, anion gap 18, BUN 98, creatinine 9.4, GFR 5 osmolarity 298. ABG 7.23//108 Renal US: Bilateral renal cortical thinning, moderate bilateral renal parenchymal scar formation, no hydronephrosis, right kidney lower pole 1.9 cm cyst, left kidney mid kidney 2.6 cm cyst, prostatomegaly 65cc no nodules s/p 1 amp bicarb, 1L LR in ED Little to no improvement in kidney fn s/p IVF Dialysis catheter placed 09/16 On admit: - Consulted Dr. Gonzales, appreciate recs - Plan 3 consecutive days of HD starting 09/16 - LR 100 mL/hr - Bicitra 30 mL BID - Strict I&Os, daily weight, galindo catheter - CTM daily renal panel - Avoid renally toxic and renally dose medication - Hold olmesartan-HCTZ 40-10 mg PO daily i/s/o TARIQ - Pending TB ppd for outpatient dialysis #Hypocalcemia #Hyperphosphatemia #Elevated PTH i/s/o TARIQ on CKD Plan: - Calcitriol 0.25 mcg PO daily - Sevelamer 800 mg PO TID (home med) #Diarrhea - resolved #Vomiting - resolved #Epigastric pain - resolved 3 weeks of nonbloody nonbilious vomiting, nonbloody diarrhea. Poor PO intake. No sick contacts w/ similar presentation Recent Cdiff testing negative 09/17 patient had solid formed stool. No more episodes of diarrhea, no N/V. No abdominal pain or abdominal TTP on exam Stool WBC negative Plan: - Pending calprotectin, Giardia, Norovirus, Hpylori - d/c isolation precautions - Pantoprazole 40 mg IV BID #UTI Denies urinary sx UA cloudy, 2+ protein, 3+ blood, 1+ bilirubin, +LE, 45 RBC, 207 WBC, rare bacteria. Plan: - Ceftriaxone 1 g IV daily (09/15-09/19) - Pending urine cx #Hematuria 1 episode of hematuria, dark urine, no clots 09/16 Plan: - See above for UTI mgmt - Held heparin 09/17 - Monitor urine output through galindo #CAD s/p stenting #HLD Stents placed by Dr. Rivera 2020 Denies typical chest pain Plan: - Atorvastatin 10 mg QHS (home med rosuvastatin 10 mg QHS) #HTN VSS Plan: - Nifedipine XL 30 mg PO daily (home med) #Dementia #Delirium Received seroquel 12.5 mg PO x1 overnight 09/15 Plan: - CTM sx - Melatonin 3 mg PO QHS #Hx of prostate carcinoma s/p radiation #Hx of superficial bladder cancer #BPH Plan: - Finasteride 5 mg PO daily (home med) #Gout Plan: - Allopurinol 100 mg PO daily (home med) #Depression Plan: - Sertraline 50 mg PO daily (home med) Checklist Dispo: Admit for TARIQ on CKD, dialysis Lines: PIV, Tunneled dialysis catheter (placed 09/16) Diet: Renal diet Bowel Reg: n/a VTE ppx: heparin subQ GI ppx: pantoprazole 40 mg IV BID Pain mgmt: Tylenol PRN Code status: full Plan discussed with Dr. Hermelindo Marte MD PGY1 Attending Provider Attestation/Addendum Patient seen and examined. Patient's relative at bedside. The patient was recently diagnosed with possible bladder cancer in [facility] [place]. The patient is planning to go back this coming December to [place]. Patient developed hematuria last night. He is afebrile.. Continue current management. I discussed with and supervised the resident physician who took care of this patient. I agree with the assessment and plan as above.
[2025-09-17 06:57] LABS: Alanine Aminotransferase 15 U/L (10-49); Albumin, Serum 3.6 gm/dL (3.4-4.8); Albumin/Globulin Ratio 2.1 (1.2-2.2); Alkaline Phosphatase 86 U/L (46-116); Aspartate Amino Transferase 27 U/L (0-34); BUN/Creatinine Ratio 11 Ratio (12-20); Bilirubin,Total 0.3 mg/dL (0.3-1.2); Blood Urea Nitrogen 54 mg/dL (9-23); Calcium 7.8 mg/dL (8.3-10.6); Calcium (Corrected) 8.1 mg/dL (8.5-10.1); Chloride 108 mMol/L (98-107); Creatinine (Component) 4.8 mg/dL (0.6-1.3); Estimated Creatinine Clearance 10.8 mL/min (>60); Globulin 1.7 gm/dL (2.3-3.5); Glucose 103 mg/dL (74-106); Magnesium 1.6 mg/dL (1.6-2.6); Osmolality,Calculated 297 (275-295); Phosphorous 3.9 mg/dL (2.4-5.1); Potassium 3.3 mMol/L (3.4-5.1); Sodium 142 mMol/L (136-145); Total Protein 5.3 gm/dL (5.7-8.2); eGFR 11 See Note
[2025-09-17 07:03] LABS: Carbon Dioxide 20.2 mMol/L (20.0-31.0)
[2025-09-17 07:09] LABS: Anion Gap 14 (7-16)
--- NOTE | 2025-09-17 09:05 | ESPR_ITS ---
Documentation for date of: 09/17/25 Subjective Subjective Interval history: Jair Elizabeth 85M pmhx significant for dementia, CAD, HTN, HLD and hx of prostate adenocarcinoma presents to [facility] ED on 09/15 sent from rug drying machine operator Dr. Gonzales's office for TARIQ on CKDIV. Son at bedside reports that patient was admitted to hospital in [facility] 10 days ago for similar presentation with TARIQ and was aggressively hydrated with IVF, discharged next day with improvement in renal function. For the past few days patient has significantly decreased p.o. intake drinking minimal water and minimal urine output. Son states that patient does forget to drink water due to dementia and has been having nausea and vomiting with diarrhea. Patient denies any flank pain, hematuria or suprapubic pain. Denies recent illness, recent travel or fever/chills. On admission, sodium 134, potassium 3.2, bicarb less than 10, anion gap 18, BUN 98, creatinine 9.4, GFR 5 osmolarity 298. Nephrology consulted for TARIQ on CKD stage IV. 09/16/25: Patient seen and examined at bedside with daughter Ang. Overnight patient was agitated trying to get up and walk around requiring quetiapine. Per daughter, patient has been more confused lately. Decision made to initiate dialysis with anticipation of renal recovery as BUN continues to be elevated at 105 with GFR 6. 09/17/25: Patient seen examined at bedside with daughter Ang. No new complaints. Patient underwent dialysis today with improvement of GFR 11 from 6 and subsequent decrease in urine creatinine and BUN. Plan for dialysis today and tomorrow. Exam Vital Signs Temp Pulse Resp BP Pulse Ox O2 Del Method O2 Flow Rate 98.0 F 66 18 136/69 H 98 Room Air 3 09/17/25 07:56 09/17/25 09:00 09/17/25 07:56 09/17/25 09:00 09/17/25 07:56 09/17/25 04:00 09/16/25 10:15 Narrative Exam GENERAL: Alert, no acute distress, dementia HEENT: mucous membranes dry, bilateral sclera anicteric CARDIOVASCULAR: regular rate and rhythm, S1/S2 present, no murmurs appreciated, R IJ TDC PULMONARY: clear to auscultation bilaterally, no rales/rhonchi/wheezes ABDOMINAL: soft, non-distended, no rebound/guarding, bowel sounds present EXTREMITIES: no peripheral edema SKIN: warm and dry, intact, no rashes NEURO: CN II-XII grossly intact, no focal deficits, alert, following commands Objective Labs 09/17/25 04:44 09/17/25 04:44 Labs: Laboratory Results - last 24 hr 09/15/25 09/17/25 21:50 04:44 WBC 9.0 RBC 2.99 L Hgb 10.4 L Hct 28.9 L MCV 97 MCH 34.8 MCHC 36.0 RDW Std Deviation 43.6 Plt Count 258 Neut % (Auto) 80 Lymph % (Auto) 9 L [place] % (Auto) 10 Eos % (Auto) 0 Baso % (Auto) 0 Neut # (Auto) 7.2 Lymph # (Auto) 0.8 L [place] # (Auto) 0.9 H Eos # (Auto) 0.0 Baso # (Auto) 0.0 Immature Gran # (Auto) 0.03 H Absolute Nucleated RBC 0.00 Immature Gran % 0 Nucleated RBC % 0 Sodium 142 Potassium 3.3 L Chloride 108 H Carbon Dioxide 20.2 Anion Gap 14 BUN 54 H Creatinine 4.8 H* D Estim Creat Clear Calc 10.8 L eGFR 11 L* BUN/Creatinine Ratio 11 L Glucose 103 Calculated Osmolality 297 H Calcium 7.8 L Corrected Calcium 8.1 L Phosphorus 3.9 Magnesium 1.6 Total Bilirubin 0.3 AST 27 ALT 15 Alkaline Phosphatase 86 Total Protein 5.3 L Albumin 3.6 Globulin 1.7 L Albumin/Globulin Ratio 2.1 Stl C. diff Tox B Gene Cancelled ABG Interpretation ABG results: 09/15/25 09/16/25 17:26 01:26 ABG pH 7.23 L 7.39 D ABG pCO2 20 L 25 L ABG pO2 108 96 ABG HCO3 8 L* 15 L ABG O2 Saturation 98 98 ABG Base Excess -17 L -8 L Quality Measures Quality Measures none Advance care planning discussed with:: child Assessment & Plan Assessment Current Active Medications: Generic Name Dose Route Start Last Admin Trade Name Freq PRN Reason Stop Dose Admin Acetaminophen 650 mg 09/15/25 17:53 Acetaminophen 325 Mg Tablet PO 10/15/25 17:52 Q6H PRN Fever >100.3 Acetaminophen 650 mg 09/15/25 17:53 Acetaminophen 325 Mg Tablet PO 10/15/25 17:52 Q6H PRN PAIN SCALE 1-3 (mild Allopurinol 100 mg 09/16/25 09:00 09/16/25 10:57 Allopurinol 100 Mg Tablet PO 10/16/25 08:59 100 mg QDAY CASEY Administration Atorvastatin Calcium 10 mg 09/15/25 21:00 09/16/25 20:27 Atorvastatin Calcium 10 Mg Tablet PO 10/15/25 20:59 10 mg HS CASEY Administration Calcitriol 0.25 mcg 09/16/25 09:00 09/16/25 10:55 Calcitriol 0.25 Mcg Capsule PO 10/16/25 08:59 0.25 mcg QDAY CASEY Administration Citric Acid/Sodium Citrate 30 ml 09/15/25 21:00 09/16/25 21:06 Citric Acid/Sodium Citr 15 Ml Udc (Bicitra) PO 10/15/25 20:59 30 ml BID CASEY Administration Finasteride 5 mg 09/16/25 09:00 09/16/25 10:56 Finasteride 5 Mg Tablet PO 10/16/25 08:59 5 mg QDAY CASEY Administration Heparin Sodium (Porcine) 5,000 unit 09/16/25 22:00 09/17/25 05:20 Heparin Sod Inj 5000 Unit/Ml Vial SC 09/30/25 21:59 5,000 unit Q8HR CASEY Administration Heparin Sodium (Porcine) 3,500 unit 09/16/25 17:51 09/16/25 19:24 Heparin Sod Inj 1000 Unit/Ml Vial 10 Ml INDWELLCAT 09/30/25 17:50 3,500 unit PRN PRN Administration DIALYSIS Lactated Ringer's 1,000 mls @ 100 mls/hr 09/15/25 17:28 09/17/25 03:12 Lactated Ringers IV 10/15/25 17:27 100 mls/hr .Q10H CASEY Administration Ceftriaxone Sodium/Dextrose 1 gm in 50 mls @ 100 mls/hr 09/15/25 18:03 09/16/25 10:58 Rocephin/D5w 1gm Iv Premix IV 09/22/25 18:02 100 mls/hr QDAY CASEY Administration Melatonin 3 mg 09/16/25 21:00 09/16/25 20:27 Melatonin 3 Mg Tablet PO 10/16/25 20:59 3 mg HS CASEY Administration Nifedipine 30 mg 09/16/25 09:00 09/16/25 10:56 Nifedipine Xl 30 Mg Tabcr PO 10/16/25 08:59 30 mg QDAY CASEY Administration Ondansetron HCl 4 mg 09/15/25 17:53 Ondansetron Inj 2 Mg/Ml Inj 2 Ml IVP 10/15/25 17:52 Q6H PRN NAUSEA OR VOMITING Protocol Pantoprazole Sodium 40 mg 09/15/25 21:00 09/16/25 21:06 Pantoprazole Inj 40 Mg Vial IVP 10/15/25 20:59 40 mg Q12HR CASEY Administration Sertraline HCl 50 mg 09/16/25 01:45 09/16/25 20:27 Sertraline Hcl 25 Mg Tablet PO 10/16/25 01:44 50 mg HS CASEY Administration Sevelamer Carbonate 800 mg 09/16/25 08:00 09/16/25 20:27 Sevelamer Carbonate 800 Mg Tablet PO 10/16/25 07:59 800 mg TIDWM CASEY Administration Plan Jair Elizabeth 85M pmhx significant for dementia, CAD, HTN, HLD and hx of prostate adenocarcinoma presents to [facility] ED on 09/15 sent from rug drying machine operator Dr. Gonzales's office for TARIQ on CKDIV likely 2/2 dehydration #TARIQ on CKDIV likely prerenal #Metabolic acidosis 2/2 TARIQ #Hypokalemia #Hyponatremia Patient sent from rug drying machine operator Dr. Gonzales's office. Endorses N/V with diarrhea and poor PO intake for the past few days. Recently admitted 10 days ago for similar presentation, and was treated with IVF with improvement. On admission, sodium 134, potassium 3.2, bicarb less than 10, anion gap 18, BUN 98, creatinine 9.4, GFR 5 osmolarity 298. ABG 7.23/20/108/8. UA cloudy, 2+ protein, 3+ blood, 1+ bilirubin, +LE, 45 RBC 207 WBC rare bacteria. Renal US: Bilateral renal cortical thinning, moderate bilateral renal parenchymal scar formation, no hydronephrosis, right kidney lower pole 1.9 cm cyst, left kidney mid kidney 2.6 cm cyst, prostatomegaly 65cc no nodules Ddx: Likely prerenal 2/2 poor p.o. intake vs UTI vs ATN vs GI losses 2/2 diarrhea TDC placed 09/16. HD: 09/16, 09/17 Plan: - HD today and tomorrow - LR 100 cc/hr and bicitra 30 mL BID - Avoid renally toxic meds and renally dose - Strict I&Os, daily weights, renal diet #Dementia #CAD #HTN #HLD #Hx of prostate carcinoma #Hx of superficial bladder cancer - Above managed per primary team Thank you for the consultation and allowing participation in patient's care. Plan of care discussed with attending Dr. Gonzales. Linda Iqbal, PGY-1 Internal Medicine Attending Provider Attestation/Addendum patient seen and examined with resident physician Dr. Iqbal. Note reviewed, agree with findings and recommendations. Patient currently seen in telemetry. Daughter Ayaan at bedside. patient more alert and awake today after first dialysis session.Currently on isolation. C. difficile pending. The diarrhea seems to be better. Patient noted to have worsening renal function in the setting of decreased p.o. intake and decreased urinary output per son for the last few days. I saw him in the office today and stat labs showed TARIQ and was sent to the emergency department for IV fluids. Strict I&O's ordered. 09/17/2025 decided to proceed with dialysis as patient's BUN and creatinine was significantly elevated and with severe metabolic acidosis. After first session his mentation seems to be much better. IJ dialysis catheter placed by Dr. Can. Patient currently seen on second dialysis. Tolerating dialysis without any problems. Hemodialysis for 2.5 hours, 4K, ultrafiltration 0 L, Epogen 6000, no heparin ordered. Plan of care discussed with the dialysis nurse. Please see dialysis flowsheet for further details. Next dialysis scheduled for tomorrow. Hep panel negative. PPD placed. Outpatient dialysis will be arranged. Plan of care discussed with the daughter.
[2025-09-17] MEDS: HEPARIN SOD INJ 1000 UNIT/ML VIAL 10 ML 3500 UNIT INDWELLCAT (11:27)
--- NOTE | 2025-09-17 11:33 | PC.SS ---
Patient is alert/oriented. Patient's daughter, Shireen, is the alt medical decision maker and has medical power of janitorial supervisor for patient. Daughter states patient resides in [facility] and typically stays here during the winter. Patient is independent with ADL's. He only uses a cane as needed. He resides with tatyana [facility], Christiano Brown. Patient has now started new dialysis. Today is day 2. Patient's Neprhologist is Dr. Gonzales. Patient will need new o/p dialysis. SS sent over documentation to [facility]. Daughter states the tentative d/c plan is for patient to return home with her to her house. Patient's will be coming down in the next 2 weeks. PCP: [facility] clinic. Pharmacy: [facility]. Family to provide transportation. Patient has a consult for PT. Kajal medical decision maker: Daughter, Shireen Peters,
[2025-09-17] MEDS: NIFEdipine XL 30 MG TABCR PO (12:36)
[2025-09-17] MEDS: FINASTERIDE 5 MG TABLET PO (12:36)
[2025-09-17] MEDS: CITRIC ACID/SODIUM CITR 15 ML UDC (BICITRA) 30 ML PO ×2 (12:37→20:23)
[2025-09-17] MEDS: cefTRIAXone/D5w 1gm IV premix 1 GM/50 ML BAG IV (12:38)
[2025-09-17] MEDS: SEVELAMER CARBONATE 800 MG TABLET PO ×2 (14:31→18:27)
[2025-09-17] MEDS: HALOPERIDOL LACT INJ 5 MG/ML VIAL 2.5 MG IV (18:16)
[2025-09-17] MEDS: ACETAMINOPHEN 325 MG TABLET 650 MG PO (19:18)
[2025-09-17] MEDS: MELATONIN 3 MG TABLET PO (20:24)
[2025-09-17] MEDS: ATORVASTATIN CALCIUM 10 MG TABLET PO (20:24)
[2025-09-17] MEDS: PANTOPRAZOLE 40 MG TABLET PO (20:24)
[2025-09-17] MEDS: SERTRALINE HCL 25 MG TABLET 50 MG PO (20:24)
[2025-09-18] VITALS (26 sets, daily range): BP systolic 91–136; BP diastolic 54–94; PULSE 55–83; RESP 15–96; TEMP 36.1–36.6; O2SAT 93–97; BMI 27.0
--- NOTE | 2025-09-18 00:13 | EKG_ITS ---
[facility] Test Date: 2025-09-18 Pat Name: FLAQUITA ORELLANA [facility] Gender: Male Mailing Jogger: PRINCE : 1940 Requested By: Sheldon Victor Order Number: [id number] Reading MD: Sheldon Victor Measurements Intervals [place] Rate: 66 P: 86 [place]: 233 QRS: 12 QRSD: 90 T: 24 QT: 418 QTc: 439 Interpretive Statements SINUS RHYTHM WITH FIRST DEGREE AV BLOCK No previous ECG available for comparison /store/S0/[id number].pdf
[2025-09-18 06:19] LABS: Basophils # (Auto) 0.0 Thou/mm3 (0.0-0.2); Basophils % (Auto) 0 % (0-2.5); Eosinophils # (Auto) 0.2 Thou/mm3 (0.0-0.5); Eosinophils % (Auto) 2 % (0-10); Hematocrit 26.5 % (41.0-53.0); Hemoglobin 9.3 g/dL (13.5-16.0); Immature Granulocytes Auto 0.03 Thou/mm3 (0.00-0.00); Lymphocytes # (Auto) 0.9 Thou/mm3 (1.0-4.8); Lymphocytes % (Auto) 11 % (10-50); Mean Corpuscular HGB Conc 35.1 g/dl (31.0-37.0); Mean Corpuscular Hemoglobin 34.8 pg (25.0-35.0); Mean Corpuscular Volume 99 fL (80-100); Monocytes # (Auto) 1.0 Thou/mm3 (0.0-0.8); Monocytes % (Auto) 12 % (0-12); Neutrophils # (Auto) 6.4 Thou/mm3 (1.8-7.7); Neutrophils % (Auto) 75 % (37-80); Nucleated Red Blood Cell # 0.00 Thou/mm3 (0.00-0.00); Nucleated Red Blood Cell % 0 /100 WBC (0); Platelet Count 200 Thou/mm3 (140-440); RDW Standard Deviation 45.3 fL (35.1-43.9); Red Blood Count 2.67 Miln/mm3 (4.50-5.90); White Blood Count 8.5 Thou/mm3 (3.8-10.6)
[2025-09-18 07:02] LABS: Alanine Aminotransferase 15 U/L (10-49); Albumin, Serum 3.3 gm/dL (3.4-4.8); Albumin/Globulin Ratio 2.1 (1.2-2.2); Alkaline Phosphatase 72 U/L (46-116); Anion Gap 10 (7-16); Aspartate Amino Transferase 25 U/L (0-34); BUN/Creatinine Ratio 10 Ratio (12-20); Bilirubin,Total 0.2 mg/dL (0.3-1.2); Blood Urea Nitrogen 32 mg/dL (9-23); Calcium 8.1 mg/dL (8.3-10.6); Calcium (Corrected) 8.7 mg/dL (8.5-10.1); Carbon Dioxide 26.8 mMol/L (20.0-31.0); Chloride 102 mMol/L (98-107); Creatinine (Component) 3.3 mg/dL (0.6-1.3); Estimated Creatinine Clearance 16.5 mL/min (>60); Globulin 1.6 gm/dL (2.3-3.5); Glucose 119 mg/dL (74-106); Magnesium 1.5 mg/dL (1.6-2.6); Osmolality,Calculated 285 (275-295); Phosphorous 3.0 mg/dL (2.4-5.1); Potassium 3.1 mMol/L (3.4-5.1); Sodium 139 mMol/L (136-145); Total Protein 4.9 gm/dL (5.7-8.2); eGFR 17 See Note
--- NOTE | 2025-09-18 07:21 | PD.RESPRO ---
Documentation for date of: 09/18/25 Subjective Subjective Interval history: Received Seroquel 25 mg PO x1 overnight for agitation. Patient evaluated while getting 3rd round of dialysis today. Reports left medial malleolus pain with movement and palpation, erythematous, mildly edematous. Exam Vital Signs Temp Pulse Resp BP Pulse Ox O2 Del Method O2 Flow Rate 97.4 F 83 17 120/63 96 Room Air 3 09/18/25 05:20 09/18/25 05:20 09/18/25 05:20 09/18/25 05:20 09/18/25 05:20 09/18/25 05:20 09/16/25 10:15 Narrative Exam General: No acute distress, well nourished, receiving dialysis Eye: PERRL, EOMI, normal conjunctiva, no scleral icterus HENT: Normocephalic, atraumatic, difficulty hearing Neck: Supple, non-tender, no JVD, no lymphadenopathy Lungs: Clear to auscultation bilaterally, non-labored respirations, symmetric chest rise, no use of accessory muscles Heart: Normal S1 and S2, no S3 or S4 appreciated. Normal rate and regular rhythm, no murmurs, rubs gallops. No LE edema Abdomen: Soft, no TTP, non-distended, normal bowel sounds. No guarding or rebound tenderness. Musculoskeletal: Normal range of motion and strength, no tenderness or swelling Skin: Skin is warm, dry, no rashes or lesions.Tunneled dialysis catheter in placed right upper chest, clean Neurologic: Alert, awake and oriented x2. CN II-XII grossly intact. No focal neuro deficits. No signs of meningeal irritation noted. Psychiatric: Cooperative, appropriate mood and affect Objective Labs 09/18/25 05:05 09/18/25 05:05 Labs: Laboratory Results - last 24 hr 09/18/25 05:05 WBC 8.5 RBC 2.67 L Hgb 9.3 L Hct 26.5 L MCV 99 MCH 34.8 MCHC 35.1 RDW Std Deviation 45.3 H Plt Count 200 D Neut % (Auto) 75 Lymph % (Auto) 11 [place] % (Auto) 12 Eos % (Auto) 2 Baso % (Auto) 0 Neut # (Auto) 6.4 Lymph # (Auto) 0.9 L [place] # (Auto) 1.0 H Eos # (Auto) 0.2 Baso # (Auto) 0.0 Immature Gran # (Auto) 0.03 H Absolute Nucleated RBC 0.00 Immature Gran % 0 Nucleated RBC % 0 Sodium 139 Potassium 3.1 L Chloride 102 Carbon Dioxide 26.8 Anion Gap 10 BUN 32 H Creatinine 3.3 H D Estim Creat Clear Calc 16.5 L eGFR 17 L BUN/Creatinine Ratio 10 L Glucose 119 H Calculated Osmolality 285 Calcium 8.1 L Corrected Calcium 8.7 Phosphorus 3.0 Magnesium 1.5 L Total Bilirubin 0.2 L AST 25 ALT 15 Alkaline Phosphatase 72 Total Protein 4.9 L Albumin 3.3 L Globulin 1.6 L Albumin/Globulin Ratio 2.1 ABG Interpretation ABG results: 09/15/25 09/16/25 17:26 01:26 ABG pH 7.23 L 7.39 D ABG pCO2 20 L 25 L ABG pO2 108 96 ABG HCO3 8 L* 15 L ABG O2 Saturation 98 98 ABG Base Excess -17 L -8 L Quality Measures Quality Measures none Advance care planning discussed with:: patient and child Assessment & Plan Assessment Current Active Medications: Generic Name Dose Route Start Last Admin Trade Name Freq PRN Reason Stop Dose Admin Acetaminophen 650 mg 09/15/25 17:53 Acetaminophen 325 Mg Tablet PO 10/15/25 17:52 Q6H PRN Fever >100.3 Acetaminophen 650 mg 09/15/25 17:53 09/17/25 19:18 Acetaminophen 325 Mg Tablet PO 10/15/25 17:52 650 mg Q6H PRN Administration PAIN SCALE 1-3 (mild Allopurinol 100 mg 09/16/25 09:00 09/17/25 12:37 Allopurinol 100 Mg Tablet PO 10/16/25 08:59 100 mg QDAY CASEY Administration Atorvastatin Calcium 10 mg 09/15/25 21:00 09/17/25 20:24 Atorvastatin Calcium 10 Mg Tablet PO 10/15/25 20:59 10 mg HS CASEY Administration Calcitriol 0.25 mcg 09/16/25 09:00 09/17/25 12:36 Calcitriol 0.25 Mcg Capsule PO 10/16/25 08:59 0.25 mcg QDAY CASEY Administration Citric Acid/Sodium Citrate 30 ml 09/15/25 21:00 09/17/25 20:23 Citric Acid/Sodium Citr 15 Ml Udc (Bicitra) PO 10/15/25 20:59 30 ml BID CASEY Administration Finasteride 5 mg 09/16/25 09:00 09/17/25 12:36 Finasteride 5 Mg Tablet PO 10/16/25 08:59 5 mg QDAY CASEY Administration Heparin Sodium (Porcine) 5,000 unit 09/16/25 22:00 09/17/25 05:20 Heparin Sod Inj 5000 Unit/Ml Vial SC 09/30/25 21:59 5,000 unit On Hold: 09/17/25 10:23 Q8HR CASEY Administration Heparin Sodium (Porcine) 3,500 unit 09/16/25 17:51 09/17/25 11:27 Heparin Sod Inj 1000 Unit/Ml Vial 10 Ml INDWELLCAT 09/30/25 17:50 3,500 unit PRN PRN Administration DIALYSIS Ceftriaxone Sodium/Dextrose 1 gm in 50 mls @ 100 mls/hr 09/15/25 18:03 09/17/25 12:38 Rocephin/D5w 1gm Iv Premix IV 09/19/25 18:00 100 mls/hr QDAY CASEY Administration Melatonin 3 mg 09/16/25 21:00 09/17/25 20:24 Melatonin 3 Mg Tablet PO 10/16/25 20:59 3 mg HS CASEY Administration Nifedipine 30 mg 09/16/25 09:00 09/17/25 12:36 Nifedipine Xl 30 Mg Tabcr PO 10/16/25 08:59 30 mg QDAY CASEY Administration Ondansetron HCl 4 mg 09/15/25 17:53 Ondansetron Inj 2 Mg/Ml Inj 2 Ml IVP 10/15/25 17:52 Q6H PRN NAUSEA OR VOMITING Protocol Pantoprazole Sodium 40 mg 09/17/25 21:00 09/17/25 20:24 Pantoprazole 40 Mg Tablet PO 10/17/25 20:59 40 mg BID CASEY Administration Protocol Quetiapine Fumarate 25 mg 09/18/25 21:00 Quetiapine Fumarate 25 Mg Tablet PO 10/18/25 20:59 HS CASEY Sertraline HCl 50 mg 09/16/25 01:45 09/17/25 20:24 Sertraline Hcl 25 Mg Tablet PO 10/16/25 01:44 50 mg HS CASEY Administration Sevelamer Carbonate 800 mg 09/16/25 08:00 09/17/25 18:27 Sevelamer Carbonate 800 Mg Tablet PO 10/16/25 07:59 800 mg TIDWM CASEY Administration Plan Mr. Elizabeth is an 85 y/o male with PMH CKD stage IV, CAD s/p stents (with Dr. Rivera), HTN, HLD, dementia, prostate cancer s/p radiation in remission who presented to the ED on 09/15 sent [address] Gonzales's office for TARIQ on CKD. Admitted for TARIQ on CKDIV, Cr 9.4. #TARIQ on CKDIV likely prerenal - TARIQ improving #Metabolic acidosis 2/2 TARIQ #Hypokalemia #Hyponatremia 2/2 dehydration i/s/o N/V/D, poor PO intake follows with Dr. Gonzales, recently seen inpatient in [facility] for for mild TARIQ (Cr ~3), managed with IVF On admit: sodium 134, potassium 3.2, bicarb less than 10, anion gap 18, BUN 98, creatinine 9.4, GFR 5 osmolarity 298. ABG 7.23/20/108 Renal US: Bilateral renal cortical thinning, moderate bilateral renal parenchymal scar formation, no hydronephrosis, right kidney lower pole 1.9 cm cyst, left kidney mid kidney 2.6 cm cyst, prostatomegaly 65cc no nodules s/p 1 amp bicarb, 1L LR in ED Little to no improvement in kidney fn s/p IVF Dialysis catheter placed 09/16 On admit: - Consulted Dr. Gonzales, appreciate recs - Plan 3 consecutive days of HD starting 09/16 - LR 100 mL/hr - Bicitra 30 mL BID - Strict I&Os, daily weight, galindo catheter - CTM daily renal panel - Avoid renally toxic and renally dose medication - Hold olmesartan-HCTZ 40-10 mg PO daily i/s/o TARIQ - Pending TB ppd for outpatient dialysis #Hypocalcemia #Hyperphosphatemia #Elevated PTH i/s/o TARIQ on CKD Plan: - Calcitriol 0.25 mcg PO daily - Sevelamer 800 mg PO TID (home med) #Diarrhea - resolved #Vomiting - resolved #Epigastric pain - resolved 3 weeks of nonbloody nonbilious vomiting, nonbloody diarrhea. Poor PO intake. No sick contacts w/ similar presentation Recent Cdiff testing negative 09/17 patient had solid formed stool. No more episodes of diarrhea, no N/V. No abdominal pain or abdominal TTP on exam Stool WBC negative Plan: - Pending calprotectin, Giardia, Norovirus, Hpylori - Pantoprazole 40 mg IV BID #UTI - r/o Denies urinary sx UA cloudy, 2+ protein, 3+ blood, 1+ bilirubin, +LE, 45 RBC, 207 WBC, rare bacteria. Urine cx NGTD Plan: - Ceftriaxone 1 g IV daily (09/15-09/19) - d/c #Hematuria 1 episode of hematuria, dark urine, no clots 09/16 Plan: - See above for UTI mgmt - Held heparin 09/17 - Monitor urine output through galindo #Left medial malleolus pain Erythematous, mildly edematous, TTP Unknown if trauma occurred to ankle Plan: - XR Left ankle pending #CAD s/p stenting #HLD Stents placed by Dr. Rivera 2020 Denies typical chest pain Plan: - Atorvastatin 10 mg QHS (home med rosuvastatin 10 mg QHS) #HTN VSS Plan: - Nifedipine XL 30 mg PO daily (home med) #Dementia #Delirium Has been receiving seroquel x1 overnight for agitation Plan: - CTM sx - Melatonin 3 mg PO QHS - Seroquel 25 mg PO QHS #Hx of prostate carcinoma s/p radiation #Hx of superficial bladder cancer #BPH Plan: - Finasteride 5 mg PO daily (home med) #Gout Plan: - Allopurinol 100 mg PO daily (home med) #Depression Plan: - Sertraline 50 mg PO daily (home med) Checklist Dispo: Admit for TARIQ on CKD, dialysis, pending PT eval Lines: PIV, Tunneled dialysis catheter (placed 09/16) Diet: Renal diet Bowel Reg: n/a VTE ppx: heparin subQ GI ppx: pantoprazole 40 mg IV BID Pain mgmt: Tylenol PRN Code status: full Plan discussed with Dr. Flores and Dr. Hermelindo Marte MD PGY1
--- NOTE | 2025-09-18 09:51 | XR_ITS ---
EXAMINATION: Left ankle 2 views TECHNIQUE: AP lateral left ankle 2 views Date and time: September 18, 2025, 1333 hours INDICATIONS: Medial malleolar soft tissue swelling and redness this week FINDINGS: Bimalleolar soft tissue swelling Moderate osteoarthritis tibiotalar joint Extensive ossification in the Achilles insertion 8 mm plantar bony calcaneal spur. Moderate narrowing subtalar joint and mild narrowing intertarsal joints No fractures No cortical bone destruction Old areas of bone density at the fibular tip IMPRESSION: Moderate ankle osteoarthritis Extensive ossification in the Achilles insertion 8 mm plantar bony calcaneal spur No fracture
[2025-09-18] MEDS: EPOETIN ALFA-EPBX INJ 10,000 UNIT/ML VIAL (NON-ESRD) 10000 UNIT SC (09:52)
[2025-09-18] MEDS: HEPARIN SOD INJ 1000 UNIT/ML VIAL 10 ML 3500 UNIT INDWELLCAT (11:16)
--- NOTE | 2025-09-18 11:33 | ESPR_ITS ---
Documentation for date of: 09/18/25 Subjective Subjective Interval history: Jair Elizabeth 85M pmhx significant for dementia, CAD, HTN, HLD and hx of prostate adenocarcinoma presents to [facility] ED on 09/15 sent from apprenticeship training representative Dr. Gonzales's office for TARIQ on CKDIV. Son at bedside reports that patient was admitted to hospital in [facility] 10 days ago for similar presentation with TARIQ and was aggressively hydrated with IVF, discharged next day with improvement in renal function. For the past few days patient has significantly decreased p.o. intake drinking minimal water and minimal urine output. Son states that patient does forget to drink water due to dementia and has been having nausea and vomiting with diarrhea. Patient denies any flank pain, hematuria or suprapubic pain. Denies recent illness, recent travel or fever/chills. On admission, sodium 134, potassium 3.2, bicarb less than 10, anion gap 18, BUN 98, creatinine 9.4, GFR 5 osmolarity 298. Nephrology consulted for TARIQ on CKD stage IV. 09/16/25: Patient seen and examined at bedside with daughter Ang. Overnight patient was agitated trying to get up and walk around requiring quetiapine. Per daughter, patient has been more confused lately. Decision made to initiate dialysis with anticipation of renal recovery as BUN continues to be elevated at 105 with GFR 6. 09/17/25: Patient seen examined at bedside with daughter Ang. No new complaints. Patient underwent dialysis today with improvement of GFR 11 from 6 and subsequent decrease in urine creatinine and BUN. Plan for dialysis today and tomorrow. 09/18/25: Patient seen examined at bedside in dialysis with daughter Ang. No complaints. Outpatient dialysis confirmed however pending start date and days of the week for dialysis (anticipate 2 days week). Following initial 2 sessions of dialysis, BUN now 32, creatinine 3.3 and GFR increased from 11 now 17. Patient's family requests for patient to be discharged home with home health. Exam Vital Signs Temp Pulse Resp BP Pulse Ox O2 Del Method O2 Flow Rate 97.8 F 61 15 102/59 L 93 L Room Air 3 09/18/25 08:28 09/18/25 11:30 09/18/25 08:28 09/18/25 11:30 09/18/25 08:28 09/18/25 08:00 09/16/25 10:15 Narrative Exam GENERAL: Alert, no acute distress, dementia HEENT: mucous membranes dry, bilateral sclera anicteric CARDIOVASCULAR: regular rate and rhythm, S1/S2 present, no murmurs appreciated, R IJ TDC PULMONARY: clear to auscultation bilaterally, no rales/rhonchi/wheezes ABDOMINAL: soft, non-distended, no rebound/guarding, bowel sounds present EXTREMITIES: no peripheral edema SKIN: warm and dry, intact, no rashes NEURO: CN II-XII grossly intact, no focal deficits, alert, following commands Objective Labs 09/18/25 05:05 09/18/25 05:05 Labs: Laboratory Results - last 24 hr 09/18/25 05:05 WBC 8.5 RBC 2.67 L Hgb 9.3 L Hct 26.5 L MCV 99 MCH 34.8 MCHC 35.1 RDW Std Deviation 45.3 H Plt Count 200 D Neut % (Auto) 75 Lymph % (Auto) 11 [place] % (Auto) 12 Eos % (Auto) 2 Baso % (Auto) 0 Neut # (Auto) 6.4 Lymph # (Auto) 0.9 L [place] # (Auto) 1.0 H Eos # (Auto) 0.2 Baso # (Auto) 0.0 Immature Gran # (Auto) 0.03 H Absolute Nucleated RBC 0.00 Immature Gran % 0 Nucleated RBC % 0 Sodium 139 Potassium 3.1 L Chloride 102 Carbon Dioxide 26.8 Anion Gap 10 BUN 32 H Creatinine 3.3 H D Estim Creat Clear Calc 16.5 L eGFR 17 L BUN/Creatinine Ratio 10 L Glucose 119 H Calculated Osmolality 285 Calcium 8.1 L Corrected Calcium 8.7 Phosphorus 3.0 Magnesium 1.5 L Total Bilirubin 0.2 L AST 25 ALT 15 Alkaline Phosphatase 72 Total Protein 4.9 L Albumin 3.3 L Globulin 1.6 L Albumin/Globulin Ratio 2.1 ABG Interpretation ABG results: 09/15/25 09/16/25 17:26 01:26 ABG pH 7.23 L 7.39 D ABG pCO2 20 L 25 L ABG pO2 108 96 ABG HCO3 8 L* 15 L ABG O2 Saturation 98 98 ABG Base Excess -17 L -8 L Quality Measures Quality Measures none Advance care planning discussed with:: child Assessment & Plan Assessment Current Active Medications: Generic Name Dose Route Start Last Admin Trade Name Freq PRN Reason Stop Dose Admin Acetaminophen 650 mg 11/12/25 17:53 Acetaminophen 325 Mg Tablet PO 10/15/25 17:52 Q6H PRN Fever >100.3 Acetaminophen 650 mg 09/15/25 17:53 09/17/25 19:18 Acetaminophen 325 Mg Tablet PO 10/15/25 17:52 650 mg Q6H PRN Administration PAIN SCALE 1-3 (mild Allopurinol 100 mg 09/16/25 09:00 09/17/25 12:37 Allopurinol 100 Mg Tablet PO 10/16/25 08:59 100 mg QDAY CASEY Administration Atorvastatin Calcium 10 mg 09/15/25 21:00 09/17/25 20:24 Atorvastatin Calcium 10 Mg Tablet PO 10/15/25 20:59 10 mg HS CASEY Administration Calcitriol 0.25 mcg 09/16/25 09:00 09/17/25 12:36 Calcitriol 0.25 Mcg Capsule PO 10/16/25 08:59 0.25 mcg QDAY CASEY Administration Citric Acid/Sodium Citrate 30 ml 09/15/25 21:00 09/17/25 20:23 Citric Acid/Sodium Citr 15 Ml Udc (Bicitra) PO 10/15/25 20:59 30 ml BID CASEY Administration Finasteride 5 mg 09/16/25 09:00 09/17/25 12:36 Finasteride 5 Mg Tablet PO 10/16/25 08:59 5 mg QDAY CASEY Administration Heparin Sodium (Porcine) 5,000 unit 09/16/25 22:00 09/17/25 05:20 Heparin Sod Inj 5000 Unit/Ml Vial SC 09/30/25 21:59 5,000 unit On Hold: 09/17/25 10:23 Q8HR CASEY Administration Heparin Sodium (Porcine) 3,500 unit 09/16/25 17:51 09/18/25 11:16 Heparin Sod Inj 1000 Unit/Ml Vial 10 Ml INDWELLCAT 09/30/25 17:50 3,500 unit PRN PRN Administration DIALYSIS Albumin Human 25 gm in 100 mls @ 0 mls/hr 09/18/25 09:06 Albuminex 25% Ivpb IV Q30M PRN DIALYSIS UD Melatonin 3 mg 09/16/25 21:00 09/17/25 20:24 Melatonin 3 Mg Tablet PO 10/16/25 20:59 3 mg HS CASEY Administration Nifedipine 30 mg 09/16/25 09:00 09/17/25 12:36 Nifedipine Xl 30 Mg Tabcr PO 10/16/25 08:59 30 mg QDAY CASEY Administration Ondansetron HCl 4 mg 09/15/25 17:53 Ondansetron Inj 2 Mg/Ml Inj 2 Ml IVP 10/15/25 17:52 Q6H PRN NAUSEA OR VOMITING Protocol Pantoprazole Sodium 40 mg 09/17/25 21:00 09/17/25 20:24 Pantoprazole 40 Mg Tablet PO 10/17/25 20:59 40 mg BID CASEY Administration Protocol Quetiapine Fumarate 25 mg 09/18/25 21:00 Quetiapine Fumarate 25 Mg Tablet PO 10/18/25 20:59 HS CASEY Sertraline HCl 50 mg 09/16/25 01:45 09/17/25 20:24 Sertraline Hcl 25 Mg Tablet PO 10/16/25 01:44 50 mg HS CASEY Administration Sevelamer Carbonate 800 mg 09/16/25 08:00 09/17/25 18:27 Sevelamer Carbonate 800 Mg Tablet PO 10/16/25 07:59 800 mg TIDWM CASEY Administration Plan Jair Elizabeth 85M pmhx significant for dementia, CAD, HTN, HLD and hx of prostate adenocarcinoma presents to [facility] ED on 09/15 sent from apprenticeship training representative Dr. Gonzales's office for TARIQ on CKDIV likely 2/2 dehydration #TARIQ on CKDIV likely prerenal #Metabolic acidosis 2/2 TARIQ #Hypokalemia #Hyponatremia Patient sent from apprenticeship training representative Dr. Gonzales's office. Endorses N/V with diarrhea and poor PO intake for the past few days. Recently admitted 10 days ago for similar presentation, and was treated with IVF with improvement. On admission, sodium 134, potassium 3.2, bicarb less than 10, anion gap 18, BUN 98, creatinine 9.4, GFR 5 osmolarity 298. ABG 7.23/20/108/8. UA cloudy, 2+ protein, 3+ blood, 1+ bilirubin, +LE, 45 RBC 207 WBC rare bacteria. Renal US: Bilateral renal cortical thinning, moderate bilateral renal parenchymal scar formation, no hydronephrosis, right kidney lower pole 1.9 cm cyst, left kidney mid kidney 2.6 cm cyst, prostatomegaly 65cc no nodules Ddx: Likely prerenal 2/2 poor p.o. intake vs UTI vs ATN vs GI losses 2/2 diarrhea RIJ TDC placed 09/16. HD: 09/16, 09/17, 09/18 Plan: - Outpatient dialysis confirmed however pending start date and days of the week for dialysis (anticipate 2 days week) - Avoid renally toxic meds and renally dose - Strict I&Os, daily weights, renal diet #Dementia #CAD #HTN #HLD #Hx of prostate carcinoma #Hx of superficial bladder cancer - Above managed per primary team Thank you for the consultation and allowing participation in patient's care. Plan of care discussed with attending Dr. Gonzales. Linda Iqbal, DO PGY-1 Internal Medicine Attending Provider Attestation/Addendum Patient seen and examined with resident physician Dr. Iqbal. Note reviewed, agree with findings and recommendations. Admitted with TARIQ, fluid overload. Patient made up on dialysis. Patient currently seen on dialysis. Tolerating dialysis without any problems. Patient more alert and awake Hemodialysis for 3 hours, 2K, ultrafiltration 1 L, Epogen 6000, no heparin ordered. Plan of care discussed with the dialysis nurse. Please see dialysis flowsheet for further details. Daughter at bedside. He is going to be discharged today. Outpatient dialysis Saturday, ordered
--- NOTE | 2025-09-18 12:08 | PC.PT ---
Patient was approached for PT eval at 0915 but patient was at dialysis session. PT checked again at 1130 and patient was still gone. Will re-attempt PT eval at another time when patient is not at dialysis. RN made aware.
--- NOTE | 2025-09-18 12:23 | PC.SS ---
Addendum entered by Gwendolyn Estes 09/18/25 12:31: Requested clinicals submitted via fax to [facility] [phone]. Original Note: Informed by Dr. Flores patient will be discharged (HOME), HD schedule is Mondays and [address] [facility]. requesting PPD results, HEP panel, flowsheets,and placement be sent to Dr. Gonzales's. Informed Dr. Flores, [facility] Dialysis staff has also informed SS. Received call from [facility] [phone], requesting PPD, Hep panel, and flowsheet. She requested clinicals be submitted via fax [phone].
[2025-09-18] MEDS: CITRIC ACID/SODIUM CITR 15 ML UDC (BICITRA) 30 ML PO (12:33)
[2025-09-18] MEDS: SEVELAMER CARBONATE 800 MG TABLET PO (12:34)
[2025-09-18] MEDS: FINASTERIDE 5 MG TABLET PO (12:34)
[2025-09-18] MEDS: NIFEdipine XL 30 MG TABCR PO (12:34)
[2025-09-18] MEDS: PANTOPRAZOLE 40 MG TABLET PO (12:34)
--- NOTE | 2025-09-18 12:35 | ESDS_ITS ---
Planned Discharge Date 09/18/25 DS: Providers Provider Date of admission: 09/15/25 17:53 Primary care physician: Maureen Gonzales MD Admitting Provider: Miles Pantoja MD Attending Provider on Admission: Miles Pantoja MD Consults: 09/15/25 16:03 Consult to Nephrology Stat Comment: TARIQ Consulting Provider: Maureen Gonzales 09/16/25 07:02 Referral Discharge Planning Routine Comment: Outpatient dialysis unit 09/18/25 09:15 Referral Physical Therapy Routine Comment: Physician Instructions: Attending Provider on DC: Dr. Casarez Discharging Provider: Arlet Marte MD DS: Diagnosis Problem List Completed Was Problem List Reviewed/Reconciled?: Yes Hospital Course Hospital Course Hospital course: Hospital Course Mr. Elizabeth is an 85 y/o male with PMH CKD stage IV (follows with Dr. Gonzales), CAD s/p stents (with Dr. Rivera), HTN, HLD, dementia, prostate cancer s/p radiation in remission who presented to the ED on 09/15 sent from direct service provider Dr. Gonzales's office for TARIQ on CKD. For the past few prior to hospitalization patient had significantly decreased p.o. intake with minimal urine output. He also had 3 weeks of nonbloody diarrhea, previous tested negative for Cdiff, associated with nausea and nonbloody nonbilious vomiting. In the ED, labs were significant for Bicarb <10, BUN 98, Cr 9.4, eGFR 5. Anion gap 18. Ultrasound showed no hydronephrosis or bladder distension, no concern for postrenal blockage. Patient was initially treated with IV fluids, sodium bicarb, Bicitra, calcitriol, sevelamer. Dr. Gonzales was consulted, and a right IJ tunneled dialysis catheter was placed 09/16 with 3 days of consecutive dialysis 09/16- 09/18. Patient's repeat labs on 09/18 before last dialysis session were as follows: BUN 32, Cr 3.3, eGFR 17. Patient's diarrhea was resolved, and stool WBC were negative. UA cloudy, 2+ protein, 3+ blood, 1+ bilirubin, +LE, 45 RBC, 207 WBC, rare bacteria. Ceftriaxone 1 g IV daily was started (09/15-09/19) and discontinued upon urine culture resulting NGTD. Patient also had mulitple episodes of agitation overnight most likely 2/2 delirium i/s/o dementia, unknown type for which he was managed with Seroquel. Patient was evaluated at bedside during dialysis session this morning, reported feeling well, no further concerns at this time. Labs were reviewed, and patient is tolerating PO diet. Patient will be discharged home with home health. Outpatient dialysis is set up with schedule Saturday and 10 AM -1 PM. Patient will follow up with Dr. Gonzales outpatient for further management of CKD stage IV. Diagnoses #TARIQ on CKDIV likely prerenal - TARIQ improving #Metabolic acidosis 2/2 TARIQ #Hypokalemia #Hyponatremia #Hypocalcemia #Hyperphosphatemia #Elevated PTH #Diarrhea - resolved #Vomiting - resolved #Epigastric pain - resolved #Hematuria #Left medial malleolus pain #CAD s/p stenting #HLD #HTN #Dementia #Hx of prostate carcinoma s/p radiation #Hx of superficial bladder cancer #BPH #Gout #Depression Discharge Instructions - Follow up with PCP within 1 week of discharge, if you do not have a primary care physician you can come see us at the [facility] by calling [phone] - Your dialysis outpatient schedule is Saturday and . Your first session will be Thursday 09/20 schedule is Mondays and 1030 with [facility] D[facility] - Return to the ED or call EMS if symptoms return and/or worsen Arlet Marte MD PGY1 Time Spent with Patient Time attestation: Total time spent providing and/or coordinating discharge services: Time spent: Greater than 30 minutes Exam Vital Signs Temp Pulse Resp BP Pulse Ox O2 Del Method O2 Flow Rate 97.7 F 57 L 16 119/66 95 Room Air 3 09/18/25 11:45 09/18/25 11:45 09/18/25 11:45 09/18/25 11:45 09/18/25 11:45 09/18/25 08:00 09/16/25 10:15 Narrative Exam General: No acute distress, well nourished Eye: PERRL, EOMI, normal conjunctiva, no scleral icterus HENT: Normocephalic, atraumatic, difficulty hearing Neck: Supple, non-tender, no JVD, no lymphadenopathy Lungs: Clear to auscultation bilaterally, non-labored respirations, symmetric chest rise, no use of accessory muscles Heart: Normal S1 and S2, no S3 or S4 appreciated. Normal rate and regular rhythm, no murmurs, rubs gallops. No LE edema Abdomen: Soft, no TTP, non-distended, normal bowel sounds. No guarding or rebound tenderness. Musculoskeletal: Normal range of motion and strength, no tenderness or swelling Skin: Skin is warm, dry, no rashes or lesions.Tunneled dialysis catheter in placed right upper chest, clean Neurologic: Alert, awake and oriented x2 (baseline). CN II-XII grossly intact. No focal neuro deficits. No signs of meningeal irritation noted. Psychiatric: Cooperative, appropriate mood and affect Discharge Plan Plan Patient Disposition: Home w/HOME HEALTH Patient condition on transfer: Stable Care Plan Goals: -Follow up with PCP within 1 week of discharge, if you do not have a primary care physician you can come see us at the [facility] by calling [phone] -Your dialysis outpatient schedule is Saturday and . Your first session will be Thursday 09/20 schedule is Mondays and 1030 with [facility] Dialysis -Return to the ED or call EMS if symptoms return and/or worsen Prescriptions/Referrals Prescriptions/Med Rec: Continued finasteride 5 mg tablet 5 mg PO QDAY celecoxib [Celebrex] 200 mg capsule 200 mg PO QDAY rosuvastatin [Crestor] 10 mg tablet 10 mg PO QDAY olmesartan-hydrochlorothiazide [Benicar HCT] 40-25 mg tablet 1 tab PO QDAY nifedipine [Procardia XL] 30 mg tablet extended release 24hr 30 mg PO QDAY vitamin B complex [B Complex-Vitamin B12] Tablet 1 tab PO QDAY ergocalciferol (vitamin D2) 1,250 mcg (50,000 unit) capsule 1,250 mcg PO QWEEK Patient Comments: TAKE ONE CAPSULE BY MOUTH EVERY WEEK allopurinol 100 mg tablet 100 mg PO .Q PM Patient Comments: TAKE 1 TABLET BY MOUTH EVERY EVENING sevelamer carbonate 800 mg tablet 800 mg PO BID sertraline 50 mg tablet 50 mg PO QDAY Patient Comments: TAKE ONE TABLET BY MOUTH EVERY DAY potassium chloride 20 mEq tablet extended release 20 meq PO .QOTHER DAY Patient Comments: STARTS SATURDAY bumetanide 1 mg tablet 1 mg PO .QOTHERDAY Patient Comments: START TUESDAYS B complex-vitamin C-folic acid 0.8 mg tablet 1 tab PO QDAY Referrals: Maureen Gonzales MD [Primary Care Provider, Nephrology] Patient/Caregiver Discharge Instructions Other Discharge Activity Instructions:: Follow up with PCP within 1 week of discharge, if you do not have a primary care physician you can come see us at the [facility] by calling [phone] -Your dialysis outpatient schedule is Saturday and . Your first session will be Thursday 09/20 schedule is Mondays and 1030 with [facility] -Return to the ED or call EMS if symptoms return and/or worsen Education Materials: Kidney Problems, Acute Kidney Failure Dc, CKD Dc Print Language: Nauruan Stand Alone Forms: [employer] Award Info., Patient Portal Info Letter Discharge Order Discharge Orders: Discharge (Routine); Ordered 09/18/25 Ordered By: Frieda Flores Quality Discharge Quality Measures VTE prophylaxis Attestestation Attestation I discussed with and supervised the resident physician who took care of this patient. I agree with the assessment and discharge plan as above. Patient advised to follow-up with primary care provider and direct service provider. The patient son said that they would most likely stay locally and will have to find a urologist. Return to the emergency room for recurrent symptoms.
--- NOTE | 2025-09-18 17:06 | PC.CC ---
Addendum entered by Leny You RN 09/18/25 18:44: [facility] accepted and booked, SOC pending Original Note: [facility] ref sent out, waiting for response. Pt will be staying with his daughter Shireen, address on facesheet.
[2025-09-21 06:24] LABS: Giardia Result NOT DETECTED; Norovirus, EIA (Stool)* NOT DETECTED
[2025-09-23 06:30] LABS: Helicobacter pylori Ag, Stool* NOT DETECTED (NOT DETECTED)
[2025-09-24 06:42] LABS: Calprotectin, Stool* 21 mcg/g
== END 2025-09-18 15:37 | disposition home health service (06) | DRG 674 ==
LOC: SERX 18:08 → SERHOLD 18:12 → S2NX 19:58
PROVIDERS: Nurse Practitioner Family; Student in an Organized Health Care Education/Training Program; Admitting Provider Student in an Organized Health Care Education/Training Program; Emergency Provider Emergency Medicine; PCP Internal Medicine; Visit Provider Student in an Organized Health Care Education/Training Program
DX: N17.9 Acute kidney failure, unspecified (principal); E87.1 Hypo-osmolality and hyponatremia; E87.20 Acidosis, unspecified; N39.0 Urinary tract infection, site not specified; F03.911 Unspecified dementia, unspecified severity, with agitation; F03.93 Unspecified dementia, unspecified severity, with mood disturbance; F03.90 Unspecified dementia, unspecified severity, without behavioral disturbance, psychotic disturbance, mood disturbance, and anxiety; N18.4 Chronic kidney disease, stage 4 (severe); Z85.46 Personal history of malignant neoplasm of prostate; E87.6 Hypokalemia; I12.9 Hypertensive chronic kidney disease with stage 1 through stage 4 chronic kidney disease, or unspecified chronic kidney disease; Z95.5 Presence of coronary angioplasty implant and graft; I25.10 Atherosclerotic heart disease of native coronary artery without angina pectoris; E78.5 Hyperlipidemia, unspecified; E86.0 Dehydration; N40.0 Benign prostatic hyperplasia without lower urinary tract symptoms; Z92.3 Personal history of irradiation; M10.9 Gout, unspecified; M25.572 Pain in left ankle and joints of left foot; E83.51 Hypocalcemia; F32.A Depression, unspecified; E83.39 Other disorders of phosphorus metabolism; Z78.9 Other specified health status; Z79.899 Other long term (current) drug therapy; Z85.51 Personal history of malignant neoplasm of bladder; Z99.2 Dependence on renal dialysis; E87.70 Fluid overload, unspecified
CPT/HCPCS: 36415; 36600; 73600; 76770; 76937; 77001; 80053; 80069; 80074; 82306; 82803; 83605; 83735; 83993; 84100; 85025; 85610; 85730; 86580; 86850; 86900; 86901; 87081; 87205; 87329; 87338; 87449; 87493; 93005; 94762; 96361; 96374; 99283; A4649; C1750; C1894; J0612; J0613; J0696; J1630; J1642; J1643; J1644; J2470; J3010; J3475; J3490; J7050; J7120; Q5106; A9270

== ENCOUNTER → 2025-09-15 | Outpatient (CLI) | payer MEDICARE, BC, SELFPAY ==
[2025-09-15 11:58] LABS: Collection Type, Urine Clean Catch
[2025-09-15 12:45] LABS: Basophils # (Auto) 0.0 Thou/mm3 (0.0-0.2); Basophils % (Auto) 0 % (0-2.5); Eosinophils # (Auto) 0.0 Thou/mm3 (0.0-0.5); Eosinophils % (Auto) 0 % (0-10); Hematocrit 34.2 % (41.0-53.0); Hemoglobin 12.1 g/dL (13.5-16.0); Immature Granulocytes Auto 0.04 Thou/mm3 (0.00-0.00); Lymphocytes # (Auto) 0.6 Thou/mm3 (1.0-4.8); Lymphocytes % (Auto) 9 % (10-50); Mean Corpuscular HGB Conc 35.4 g/dl (31.0-37.0); Mean Corpuscular Hemoglobin 35.2 pg (25.0-35.0); Mean Corpuscular Volume 99 fL (80-100); Monocytes # (Auto) 0.5 Thou/mm3 (0.0-0.8); Monocytes % (Auto) 7 % (0-12); Neutrophils # (Auto) 6.0 Thou/mm3 (1.8-7.7); Neutrophils % (Auto) 83 % (37-80); Nucleated Red Blood Cell # 0.00 Thou/mm3 (0.00-0.00); Nucleated Red Blood Cell % 0 /100 WBC (0); Platelet Count 328 Thou/mm3 (140-440); RDW Standard Deviation 47.0 fL (35.1-43.9); Red Blood Count 3.44 Miln/mm3 (4.50-5.90); White Blood Count 7.3 Thou/mm3 (3.8-10.6)
[2025-09-15 12:57] LABS: Bacteria,Urine Rare; Bilirubin,Urine 1+ (Negative); Blood,Urine 3+ (Negative); Color,Urine Yellow (Lt Yel-Yel); Glucose, Urine Negative (Negative); Hyaline Casts,Urine < 1 /hpf (0-1); Ketones,Urine Negative (Negative); Leukocyte Esterase,Urine Positive (Negative); Nitrite,Urine Negative (Negative); PH,Urine 5.5 (5.0-7.0); Protein,Urine 2+ (Neg - Trace); RBC,Urine 45 /hpf (0-3); Specific Gravity,Urine 1.015 (1.001-1.035); Squamous Epithelial Cell,Urine 4 /hpf (0-5); Urobilinogen,Urine Negative mg/dL (0.0-1.0); WBC,Urine 207 /hpf (0-5)
[2025-09-15 13:02] LABS: Alanine Aminotransferase 17 U/L (10-49); Albumin, Serum 4.3 gm/dL (3.4-4.8); Albumin/Globulin Ratio 1.9 (1.2-2.2); Alkaline Phosphatase 108 U/L (46-116); Anion Gap 18 (7-16); Aspartate Amino Transferase 25 U/L (0-34); BUN/Creatinine Ratio 10 Ratio (12-20); Bilirubin,Total 0.2 mg/dL (0.3-1.2); Blood Urea Nitrogen 98 mg/dL (9-23); Calcium 8.4 mg/dL (8.3-10.6); Calcium (Corrected) 8.4 mg/dL (8.5-10.1); Chloride 106 mMol/L (98-107); Creatinine (Component) 9.4 mg/dL (0.6-1.3); Globulin 2.3 gm/dL (2.3-3.5); Glucose 106 mg/dL (74-106); Osmolality,Calculated 298 (275-295); Potassium 3.2 mMol/L (3.4-5.1); Sodium 134 mMol/L (136-145); Total Protein 6.6 gm/dL (5.7-8.2); eGFR 5 See Note
[2025-09-15 13:04] LABS: Clarity,Urine Cloudy (Clear/Hazy); Culture Indicated,Urine Yes
[2025-09-15 13:13] LABS: Carbon Dioxide < 10.0 mMol/L (20.0-31.0)
[2025-09-15 16:59] LABS: Parathyroid Hormone Intact 217.7 pg/ml (18.5-88.0)
== END | disposition home or self-care (01) ==
PROVIDERS: PCP Internal Medicine; Referring Provider Internal Medicine; Visit Provider Internal Medicine
DX: N17.9 Acute kidney failure, unspecified (principal); I10 Essential (primary) hypertension; E78.5 Hyperlipidemia, unspecified
CPT/HCPCS: 36415; 80053; 81001; 83970; 85025; 87086

== ENCOUNTER → 2025-10-05 | Outpatient (CLI) | payer MEDICARE, BC, SELFPAY ==
[2025-10-06 12:23] LABS: Clostridium Difficile PCR Negative (Negative)
== END | disposition home or self-care (01) ==
LOC: SLDO 16:53
PROVIDERS: PCP Internal Medicine; Referring Provider Internal Medicine; Visit Provider Internal Medicine
DX: A04.72 Enterocolitis due to Clostridium difficile, not specified as recurrent (principal)
CPT/HCPCS: 87493